=== PATIENT | female | born 1970 | race Caucasian/White ===

== ENCOUNTER 2020-10-18 09:24 | Inpatient (IN) | payer MEDICAID, OTHER ==
[~2020-10-18] VITALS: Ht 157.5 cm; Wt 78.0 kg
[2020-10-18] MEDS ORDERED: AZITHROMYCIN 500 MG in DEXT 5% WATER 250 ML IV ONE (10:00)
[2020-10-18] MEDS ORDERED: CEFTRIAXONE 1 G PREMIX 50 ML IV ONE (10:00)
[2020-10-18] MEDS ORDERED: DEXAMETHASONE 10 MG/ML VIAL IV ONE (10:00)
[2020-10-18 10:30] LABS: HEMATOCRIT. 43.3 % (36.0-48.0); HEMOGLOBIN. 14.2 g/dL (12.0-16.0); MEAN CORPUSCULAR HEMOGLOBIN 28.8 pg (28.0-32.0); MEAN CORPUSCULAR VOLUME 87.5 fL (81.0-99.0); MEAN PLATELET VOLUME 10.5 fl (7.4-10.4); PLATELET 270 x1000/uL (130-400); RED BLOOD CELL COUNT 4.94 mill/uL (4.2-5.4); RED CELL DISTRIBUTION WIDTH 13.4 % (11.6-14.6)
[2020-10-18 10:36] LABS: CHLORIDE 91 mEq/L (98-107)
[2020-10-18 10:40] LABS: PARTIAL THROMBOPLASTIN TIME 28.5 sec (23.4-31.0); PROTHROMBIN TIME 10.4 sec (9.6-11.0)
[2020-10-18 10:47] LABS: PLATELET ESTIMATE NORMAL
[2020-10-18 11:34] LABS: BG BASE EXCESS -5.3 mmol/L (-2.0-2.0); BG CARBOXYHEMOGLOBIN 1.1 % (0.5-1.5); BG DEOXYHEMOGLOBIN 15.8 % (0.0-5.0); BG FRACTION INSPIRED OXYGEN 100; BG METHEMOGLOBIN 0.2 % (0.0-1.5); BG OXYHEMOGLOBIN 82.9 % (94.0-97.0); BG PCO2 29.2 mmHg (35.0-45.0); BG PH 7.408 (7.350-7.450); BG PO2 46.1 mmHg (75.0-100.0); BG SAMPLE SITE RIGHT BRACHIAL; BG TOTAL HEMOGLOBIN 14.1 g/dL (12.0-18.0); BG TOTAL RESPIRATORY RATE 33 b/min; BG VENT MODE MASK - BIPAP
[2020-10-18] MEDS ORDERED: PROPOFOL 10MG/ML 100ML 100 ML IV STA (11:36)
[2020-10-18 12:53] LABS: BG CARBOXYHEMOGLOBIN 0.9 % (0.5-1.5); BG DEOXYHEMOGLOBIN 3.7 % (0.0-5.0); BG HCO3 ACT 19.4 mmol/L (22.0-26.0); BG METHEMOGLOBIN 0.2 % (0.0-1.5); BG OXYGEN SATURATION 96.3 % (92.0-98.5); BG OXYHEMOGLOBIN 95.2 % (94.0-97.0); BG PH 7.282 (7.350-7.450); BG PO2 93.5 mmHg (75.0-100.0); BG SAMPLE SITE RIGHT RADIAL; BG TOTAL HEMOGLOBIN 14.9 g/dL (12.0-18.0); BG VENT MODE VENT - AC
[2020-10-18] MEDS ORDERED: ACETAMINOPHEN 650MG/20.3ML UDC NG ONE (13:00)
[2020-10-18] MEDS ORDERED: INSULIN REGULAR (HUMULIN R) UD 100 UNITS/ML SYR SUBCUT ONE (13:15)
[2020-10-18] MEDS ORDERED: INSULIN REGULAR (HUMULIN R) 300UNITS/3ML VIAL SUBCUT ONE (15:00)
[2020-10-18] MEDS ORDERED: MIDAZOLAM HCL 100 MG in DEXT 5% WATER 80 ML IV ONE (15:15)
[2020-10-18] MEDS ORDERED: SODIUM BICARBONATE 8.4% 1 MEQ/ML 50ML SYR IV NR (16:00)
[2020-10-18] MEDS ORDERED: FENTANYL CITRATE/PF 2,500 MCG in SODIUM CHLORIDE 0.9% 200 ML IV PRN ×2 (17:45→18:00)
[2020-10-18] MEDS ORDERED: MIDAZOLAM HCL 100 MG in DEXT 5% WATER 80 ML IV PRN ×2 (17:45→18:00)
[2020-10-18 17:57] LABS: CLARITY URINE CLEAR (CLEAR); COLOR URINE YELLOW (YELLOW); KETONES URINE 3+ (NEGATIVE); LEUKOCYTE ESTERASE URINE NEGATIVE (NEGATIVE); NITRITE URINE NEGATIVE (NEGATIVE); OCCULT BLOOD URINE NEGATIVE (NEGATIVE); PH URINE 5.5 (4.5-8.0); PROTEIN URINE 2+ (NEGATIVE); SPECIFIC GRAVITY URINE 1.031 (1.005-1.030)
[2020-10-18] MEDS ORDERED: NOREPINEPHRINE 8 MG in DEXT 5% WATER 242 ML IV PRN (19:09)
[2020-10-18] MEDS ORDERED: ACETAMINOPHEN 650MG/20.3ML UDC NG PRN (19:45)
[2020-10-18] MEDS ORDERED: ENOXAPARIN 40MG/0.4ML SYR SUBCUT SCH (19:45)
[2020-10-18] MEDS ORDERED: ONDANSETRON HCL 4MG/2ML INJ IV PRN (19:45)
[2020-10-18] MEDS: ENOXAPARIN 40MG/0.4ML SYR SUBCUT SCH (19:50)
[2020-10-18] MEDS: SODIUM CHLORIDE 0.9% 1,000 ML IV SCH (19:51)
[2020-10-18] MEDS ORDERED: NOREPINEPHRINE 8 MG in SODIUM CHLORIDE 0.9% 242 ML IV PRN (20:04)
[2020-10-18] MEDS: BLOOD SUGAR DIAGNOSTIC STRIP TEST SCH (21:27)
[2020-10-18] MEDS: INSULIN LISPRO 100 UNITS/ML SUBCUT SCH (21:32)
[2020-10-18] MEDS: ERGOCALCIFEROL 50000UNITS CAPSULE PO SCH (21:33)
[2020-10-18] MEDS: INSULIN GLARGINE UD 100 UNITS/ML SYR SUBCUT SCH (22:52)
[2020-10-19] MEDS: BLOOD SUGAR DIAGNOSTIC STRIP TEST SCH ×6 (01:35→20:00)
[2020-10-19] MEDS: INSULIN LISPRO 100 UNITS/ML SUBCUT SCH ×6 (01:38→21:16)
[2020-10-19] MEDS: ASCORBIC ACID 500 MG TABLET PO SCH ×3 (01:52→21:47)
[2020-10-19 06:52] LABS: CHLORIDE 101 mEq/L (98-107)
[2020-10-19 06:59] LABS: PHOSPHORUS 2.4 mg/dL (2.5-4.9)
[2020-10-19 07:11] LABS: BASOPHILS % 0.1 % (0.0-2.0); HEMATOCRIT. 36.5 % (36.0-48.0); HEMOGLOBIN. 12.3 g/dL (12.0-16.0); LYMPHOCYTES % 7.7 % (20.0-50.0); MEAN CORPUSCULAR HEMOGLOBIN 28.9 pg (28.0-32.0); MEAN CORPUSCULAR VOLUME 85.8 fL (81.0-99.0); MEAN PLATELET VOLUME 10.9 fl (7.4-10.4); MONOCYTES % 6.9 % (2.0-8.0); NEUTROPHILS % 85.3 % (40.0-76.0); PLATELET 197 x1000/uL (130-400); RED BLOOD CELL COUNT 4.26 mill/uL (4.2-5.4); RED CELL DISTRIBUTION WIDTH 13.3 % (11.6-14.6)
[2020-10-19 08:23] LABS: BG BASE EXCESS 1.7 mmol/L (-2.0-2.0); BG CARBOXYHEMOGLOBIN 0.3 % (0.5-1.5); BG HCO3 ACT 25.4 mmol/L (22.0-26.0); BG METHEMOGLOBIN 0.2 % (0.0-1.5); BG OXYHEMOGLOBIN 98.5 % (94.0-97.0); BG PCO2 36.6 mmHg (35.0-45.0); BG PH 7.459 (7.350-7.450); BG PO2 209.3 mmHg (75.0-100.0); BG SAMPLE SITE RIGHT RADIAL; BG TOTAL HEMOGLOBIN 12.6 g/dL (12.0-18.0); BG VENT MODE VENT - AC
[2020-10-19] MEDS: PANTOPRAZOLE SODIUM 40 MG/VIAL IV SCH (09:00)
[2020-10-19] MEDS: INSULIN GLARGINE UD 100 UNITS/ML SYR SUBCUT SCH ×2 (10:00→21:47)
[2020-10-19] MEDS: SODIUM CHLORIDE 0.9% 1,000 ML IV SCH (10:39)
[2020-10-19] MEDS: DEXAMETHASONE 10 MG/ML VIAL IV SCH (14:46)
[2020-10-19] MEDS: CEFTRIAXONE 1 G PREMIX 50 ML IV SCH (15:09)
[2020-10-19] MEDS: ENOXAPARIN 40MG/0.4ML SYR SUBCUT SCH (17:15)
[2020-10-19] MEDS: DOXYCYCLINE HYCLATE 100MG CAPSULE PO SCH (21:47)
[2020-10-19] MEDS ORDERED: INSULIN GLARGINE UD 100 UNITS/ML SYR SUBCUT SCH (22:00)
[2020-10-20] MEDS: BLOOD SUGAR DIAGNOSTIC STRIP TEST SCH ×6 (00:06→20:23)
[2020-10-20] MEDS: INSULIN LISPRO 100 UNITS/ML SUBCUT SCH ×6 (00:08→20:23)
[2020-10-20] MEDS: CEFTRIAXONE 1 G PREMIX 50 ML IV SCH (08:59)
[2020-10-20] MEDS: DEXAMETHASONE 10 MG/ML VIAL IV SCH (08:59)
[2020-10-20] MEDS: PANTOPRAZOLE SODIUM 40 MG/VIAL IV SCH (08:59)
[2020-10-20] MEDS: DOXYCYCLINE HYCLATE 100MG CAPSULE PO SCH (09:00)
[2020-10-20] MEDS: ASCORBIC ACID 500 MG TABLET PO SCH (09:00)
[2020-10-20] MEDS: INSULIN GLARGINE UD 100 UNITS/ML SYR SUBCUT SCH (10:00)
[2020-10-20 10:15] LABS: BG BASE EXCESS 0.7 mmol/L (-2.0-2.0); BG CARBOXYHEMOGLOBIN 0.3 % (0.5-1.5); BG FRACTION INSPIRED OXYGEN 80; BG HCO3 ACT 24.3 mmol/L (22.0-26.0); BG OXYHEMOGLOBIN 98.7 % (94.0-97.0); BG PCO2 35.8 mmHg (35.0-45.0); BG PO2 169.6 mmHg (75.0-100.0); BG SAMPLE SITE RIGHT RADIAL; BG TOTAL HEMOGLOBIN 13.2 g/dL (12.0-18.0); BG VENT MODE VENT - AC
[2020-10-20] MEDS: SODIUM CHLORIDE 0.9% 1,000 ML IV SCH (11:45)
[2020-10-20] MEDS: ENOXAPARIN 40MG/0.4ML SYR SUBCUT SCH (17:21)
[2020-10-20] MEDS ORDERED: MIDAZOLAM HCL 100 MG in SODIUM CHLORIDE 0.9% 80 ML IV PRN (19:30)
[2020-10-21] MEDS: ASCORBIC ACID 500 MG TABLET PO SCH ×3 (00:03→22:29)
[2020-10-21] MEDS: INSULIN GLARGINE UD 100 UNITS/ML SYR SUBCUT SCH ×3 (00:03→22:00)
[2020-10-21] MEDS: DOXYCYCLINE HYCLATE 100MG CAPSULE PO SCH ×3 (00:03→22:43)
[2020-10-21] MEDS: BLOOD SUGAR DIAGNOSTIC STRIP TEST SCH ×6 (00:06→22:28)
[2020-10-21] MEDS: INSULIN LISPRO 100 UNITS/ML SUBCUT SCH ×6 (00:07→22:28)
[2020-10-21 06:32] LABS: HEMOGLOBIN. 12.5 g/dL (12.0-16.0); MEAN CORPUSCULAR HEMOGLOBIN 28.2 pg (28.0-32.0); MEAN CORPUSCULAR VOLUME 85.8 fL (81.0-99.0); PLATELET 156 x1000/uL (130-400); RED BLOOD CELL COUNT 4.43 mill/uL (4.2-5.4); RED CELL DISTRIBUTION WIDTH 13.7 % (11.6-14.6)
[2020-10-21 06:44] LABS: CHLORIDE 107 mEq/L (98-107)
[2020-10-21 06:52] LABS: PHOSPHORUS 4.8 mg/dL (2.5-4.9)
[2020-10-21] MEDS: SODIUM CHLORIDE 0.9% 1,000 ML IV SCH ×3 (06:54→22:29)
[2020-10-21 08:38] LABS: BG BASE EXCESS -2.5 mmol/L (-2.0-2.0); BG CARBOXYHEMOGLOBIN 0.7 % (0.5-1.5); BG DEOXYHEMOGLOBIN 2.8 % (0.0-5.0); BG FRACTION INSPIRED OXYGEN 60; BG HCO3 ACT 21.8 mmol/L (22.0-26.0); BG METHEMOGLOBIN 0.1 % (0.0-1.5); BG OXYGEN SATURATION 97.2 % (92.0-98.5); BG OXYHEMOGLOBIN 96.4 % (94.0-97.0); BG PO2 94.5 mmHg (75.0-100.0); BG SAMPLE SITE RIGHT RADIAL; BG TOTAL HEMOGLOBIN 12.6 g/dL (12.0-18.0); BG VENT MODE VENT - AC
[2020-10-21] MEDS: CEFTRIAXONE 1 G PREMIX 50 ML IV SCH (11:00)
[2020-10-21] MEDS: FAMOTIDINE 20MG/2ML VIAL IV SCH ×2 (11:00→22:28)
[2020-10-21 13:36] LABS: PLATELET ESTIMATE NORMAL
[2020-10-21] MEDS: DEXAMETHASONE 10 MG/ML VIAL IV SCH (15:48)
[2020-10-21] MEDS: DEXTROSE 50% WATER 50ML SYRINGE IV PRN (17:46)
[2020-10-21] MEDS: ENOXAPARIN 30MG/0.3ML SYR SUBCUT SCH (22:28)
[2020-10-22] MEDS ORDERED: ALBUMIN HUMAN 25GM/100ML (25%) IV NR (01:00)
[2020-10-22] MEDS: DEXTROSE 50% WATER 50ML SYRINGE IV PRN ×3 (01:12→22:12)
[2020-10-22] MEDS: INSULIN LISPRO 100 UNITS/ML SUBCUT SCH ×6 (01:12→22:15)
[2020-10-22] MEDS: BLOOD SUGAR DIAGNOSTIC STRIP TEST SCH ×6 (01:12→20:00)
[2020-10-22 06:23] LABS: HEMATOCRIT. 36.8 % (36.0-48.0); HEMOGLOBIN. 12.4 g/dL (12.0-16.0); MEAN CORPUSCULAR HEMOGLOBIN 29.2 pg (28.0-32.0); MEAN CORPUSCULAR VOLUME 86.4 fL (81.0-99.0); MEAN PLATELET VOLUME 9.8 fl (7.4-10.4); PLATELET 148 x1000/uL (130-400); RED BLOOD CELL COUNT 4.26 mill/uL (4.2-5.4); RED CELL DISTRIBUTION WIDTH 13.9 % (11.6-14.6)
[2020-10-22] MEDS ORDERED: ALBUMIN HUMAN 25GM/100ML (25%) IV SCH (08:00)
[2020-10-22] MEDS: ASCORBIC ACID 500 MG TABLET PO SCH ×2 (09:54→23:15)
[2020-10-22] MEDS: FAMOTIDINE 20MG/2ML VIAL IV SCH ×2 (09:54→23:15)
[2020-10-22] MEDS: DEXAMETHASONE 10 MG/ML VIAL IV SCH (09:54)
[2020-10-22] MEDS: DOXYCYCLINE HYCLATE 100MG CAPSULE PO SCH ×2 (09:54→23:15)
[2020-10-22] MEDS: INSULIN GLARGINE UD 100 UNITS/ML SYR SUBCUT SCH ×2 (09:54→22:00)
[2020-10-22 10:45] LABS: BG BASE EXCESS -5.7 mmol/L (-2.0-2.0); BG CARBOXYHEMOGLOBIN 0.3 % (0.5-1.5); BG DEOXYHEMOGLOBIN 3.7 % (0.0-5.0); BG FRACTION INSPIRED OXYGEN 50; BG HCO3 ACT 20.1 mmol/L (22.0-26.0); BG OXYGEN SATURATION 96.3 % (92.0-98.5); BG PCO2 40.1 mmHg (35.0-45.0); BG PH 7.317 (7.350-7.450); BG PO2 91.1 mmHg (75.0-100.0); BG SAMPLE SITE RIGHT RADIAL; BG VENT MODE VENT - AC
[2020-10-22] MEDS: SODIUM CHLORIDE 0.9% 1,000 ML IV SCH ×2 (10:53→13:30)
[2020-10-22] MEDS: CEFTRIAXONE 1 G PREMIX 50 ML IV SCH (10:54)
[2020-10-22 11:46] LABS: PLATELET ESTIMATE NORMAL
[2020-10-22] MEDS: ENOXAPARIN 30MG/0.3ML SYR SUBCUT SCH (16:59)
[2020-10-23] MEDS: BLOOD SUGAR DIAGNOSTIC STRIP TEST SCH ×5 (00:40→16:37)
[2020-10-23] MEDS ORDERED: MIDAZOLAM HCL 100 MG in DEXT 5% WATER 80 ML IV SCH (04:00)
[2020-10-23] MEDS: INSULIN LISPRO 100 UNITS/ML SUBCUT SCH ×5 (04:00→16:39)
[2020-10-23] MEDS: DEXTROSE 50% WATER 50ML SYRINGE IV PRN ×2 (04:52→10:00)
[2020-10-23] MEDS: SODIUM CHLORIDE 0.9% 1,000 ML IV SCH (06:18)
[2020-10-23 06:30] LABS: HEMOGLOBIN. 13.5 g/dL (12.0-16.0); MEAN CORPUSCULAR VOLUME 87.8 fL (81.0-99.0); MEAN PLATELET VOLUME 9.4 fl (7.4-10.4); PLATELET 153 x1000/uL (130-400); RED BLOOD CELL COUNT 4.67 mill/uL (4.2-5.4); RED CELL DISTRIBUTION WIDTH 14.2 % (11.6-14.6)
[2020-10-23 07:04] LABS: PHOSPHORUS 4.8 mg/dL (2.5-4.9)
[2020-10-23 07:50] LABS: PLATELET ESTIMATE NORMAL
[2020-10-23] MEDS: ASCORBIC ACID 500 MG TABLET PO SCH (09:39)
[2020-10-23] MEDS: DEXT 5%/0.45% NACL 1000ML 1,000 ML IV SCH ×2 (09:39→18:02)
[2020-10-23] MEDS: CEFTRIAXONE 1 G PREMIX 50 ML IV SCH (09:39)
[2020-10-23] MEDS: DEXAMETHASONE 10 MG/ML VIAL IV SCH (09:39)
[2020-10-23] MEDS: FAMOTIDINE 20MG/2ML VIAL IV SCH (09:39)
[2020-10-23 09:55] LABS: BG BASE EXCESS -7.1 mmol/L (-2.0-2.0); BG CARBOXYHEMOGLOBIN 0.8 % (0.5-1.5); BG DEOXYHEMOGLOBIN 5.3 % (0.0-5.0); BG FRACTION INSPIRED OXYGEN 80; BG HCO3 ACT 19.1 mmol/L (22.0-26.0); BG METHEMOGLOBIN 0.2 % (0.0-1.5); BG OXYGEN SATURATION 94.6 % (92.0-98.5); BG OXYHEMOGLOBIN 93.7 % (94.0-97.0); BG PCO2 41.4 mmHg (35.0-45.0); BG PH 7.283 (7.350-7.450); BG PO2 74.5 mmHg (75.0-100.0); BG SAMPLE SITE LEFT RADIAL; BG TOTAL HEMOGLOBIN 13.3 g/dL (12.0-18.0); BG TOTAL RESPIRATORY RATE 26 b/min; BG VENT MODE VENT - AC
[2020-10-23] MEDS: INSULIN GLARGINE UD 100 UNITS/ML SYR SUBCUT SCH ×2 (10:00→22:00)
[2020-10-23] MEDS: DOXYCYCLINE HYCLATE 100MG CAPSULE PO SCH ×2 (10:00→21:00)
[2020-10-23] MEDS ORDERED: MIDAZOLAM HCL 100 MG in SODIUM CHLORIDE 0.9% 80 ML IV PRN (16:30)
[2020-10-23] MEDS: ENOXAPARIN 30MG/0.3ML SYR SUBCUT SCH (17:22)
[2020-10-23] MEDS: PIPERACILLIN/TAZOBACTAM 3.375 G in DEXT 5% WATER 100 ML IV SCH (17:43)
[2020-10-24] MEDS: BLOOD SUGAR DIAGNOSTIC STRIP TEST SCH ×8 (00:37→23:58)
[2020-10-24] MEDS: INSULIN LISPRO 100 UNITS/ML SUBCUT SCH ×7 (00:41→23:59)
[2020-10-24] MEDS: FAMOTIDINE 20MG/2ML VIAL IV SCH ×2 (00:54→09:31)
[2020-10-24] MEDS: ASCORBIC ACID 500 MG TABLET PO SCH ×2 (00:55→09:00)
[2020-10-24] MEDS: PIPERACILLIN/TAZOBACTAM 3.375 G in DEXT 5% WATER 100 ML IV SCH ×3 (01:00→17:17)
[2020-10-24] MEDS: ACETAMINOPHEN 650MG/20.3ML UDC NG PRN ×2 (02:28→04:58)
[2020-10-24 06:42] LABS: HEMATOCRIT. 38.1 % (36.0-48.0); HEMOGLOBIN. 12.4 g/dL (12.0-16.0); MEAN CORPUSCULAR HEMOGLOBIN 28.7 pg (28.0-32.0); MEAN CORPUSCULAR VOLUME 88.4 fL (81.0-99.0); MEAN PLATELET VOLUME 10.1 fl (7.4-10.4); PLATELET 120 x1000/uL (130-400); RED BLOOD CELL COUNT 4.31 mill/uL (4.2-5.4); RED CELL DISTRIBUTION WIDTH 14.4 % (11.6-14.6)
[2020-10-24 06:49] LABS: PHOSPHORUS 3.5 mg/dL (2.5-4.9)
[2020-10-24] MEDS: DEXT 5%/0.45% NACL 1000ML 1,000 ML IV SCH ×2 (07:30→16:03)
[2020-10-24 08:06] LABS: BG BASE EXCESS -6.1 mmol/L (-2.0-2.0); BG CARBOXYHEMOGLOBIN 0.1 % (0.5-1.5); BG DEOXYHEMOGLOBIN 1.4 % (0.0-5.0); BG HCO3 ACT 19.6 mmol/L (22.0-26.0); BG METHEMOGLOBIN 0.3 % (0.0-1.5); BG OXYGEN SATURATION 98.6 % (92.0-98.5); BG OXYHEMOGLOBIN 98.2 % (94.0-97.0); BG PCO2 39.4 mmHg (35.0-45.0); BG PH 7.315 (7.350-7.450); BG PO2 155.5 mmHg (75.0-100.0); BG SAMPLE SITE RIGHT RADIAL; BG TOTAL HEMOGLOBIN 13.8 g/dL (12.0-18.0); BG VENT MODE VENT - AC
[2020-10-24] MEDS: DOXYCYCLINE HYCLATE 100MG CAPSULE PO SCH ×2 (09:00→11:00)
[2020-10-24] MEDS: DEXAMETHASONE 10 MG/ML VIAL IV SCH (09:31)
[2020-10-24 09:48] LABS: PLATELET ESTIMATE DECREASED
[2020-10-24] MEDS: MIDAZOLAM HCL 100 MG in DEXT 5% WATER 80 ML IV SCH (11:45)
[2020-10-24] MEDS: INSULIN GLARGINE UD 100 UNITS/ML SYR SUBCUT SCH ×2 (11:53→23:06)
[2020-10-24] MEDS: ENOXAPARIN 30MG/0.3ML SYR SUBCUT SCH (17:00)
[2020-10-24] MEDS ORDERED: VECURONIUM BROMIDE 10 MG/VIAL IV ONE (22:00)
[2020-10-24] MEDS ORDERED: ETOMIDATE 2MG/ML 10ML VIAL IV ONE (22:00)
[2020-10-24 23:57] LABS: BG BASE EXCESS -3.7 mmol/L (-2.0-2.0); BG CARBOXYHEMOGLOBIN 0.3 % (0.5-1.5); BG DEOXYHEMOGLOBIN 1.7 % (0.0-5.0); BG FRACTION INSPIRED OXYGEN 80; BG HCO3 ACT 21.6 mmol/L (22.0-26.0); BG METHEMOGLOBIN 0.3 % (0.0-1.5); BG OXYGEN SATURATION 98.3 % (92.0-98.5); BG OXYHEMOGLOBIN 97.7 % (94.0-97.0); BG PCO2 40.1 mmHg (35.0-45.0); BG PO2 128.5 mmHg (75.0-100.0); BG SAMPLE SITE RIGHT RADIAL; BG VENT MODE VENT - AC
[2020-10-25] MEDS: FAMOTIDINE 20MG/2ML VIAL IV SCH ×3 (00:19→21:20)
[2020-10-25] MEDS: ASCORBIC ACID 500 MG TABLET PO SCH ×3 (00:29→21:20)
[2020-10-25] MEDS: PIPERACILLIN/TAZOBACTAM 3.375 G in DEXT 5% WATER 100 ML IV SCH ×3 (03:38→18:36)
[2020-10-25] MEDS: INSULIN LISPRO 100 UNITS/ML SUBCUT SCH ×5 (04:00→20:58)
[2020-10-25] MEDS: BLOOD SUGAR DIAGNOSTIC STRIP TEST SCH ×5 (04:47→20:58)
[2020-10-25] MEDS: DEXT 5%/0.45% NACL 1000ML 1,000 ML IV SCH (07:30)
[2020-10-25] MEDS: DOXYCYCLINE HYCLATE 100MG CAPSULE PO SCH ×2 (09:00→22:24)
[2020-10-25 09:08] LABS: BG BASE EXCESS -3.4 mmol/L (-2.0-2.0); BG CARBOXYHEMOGLOBIN 0.3 % (0.5-1.5); BG DEOXYHEMOGLOBIN 1.3 % (0.0-5.0); BG FRACTION INSPIRED OXYGEN 80; BG HCO3 ACT 21.5 mmol/L (22.0-26.0); BG OXYGEN SATURATION 98.7 % (92.0-98.5); BG OXYHEMOGLOBIN 98.4 % (94.0-97.0); BG PCO2 38.3 mmHg (35.0-45.0); BG PH 7.367 (7.350-7.450); BG PO2 163.8 mmHg (75.0-100.0); BG SAMPLE SITE RIGHT RADIAL; BG TOTAL HEMOGLOBIN 12.5 g/dL (12.0-18.0); BG TOTAL RESPIRATORY RATE 28 b/min; BG VENT MODE VENT - AC
[2020-10-25] MEDS: DEXAMETHASONE 10 MG/ML VIAL IV SCH (09:57)
[2020-10-25] MEDS: INSULIN GLARGINE UD 100 UNITS/ML SYR SUBCUT SCH (11:45)
[2020-10-25 11:49] LABS: HEMATOCRIT. 35.2 % (36.0-48.0); HEMOGLOBIN. 11.4 g/dL (12.0-16.0); MEAN CORPUSCULAR HEMOGLOBIN 28.2 pg (28.0-32.0); MEAN CORPUSCULAR VOLUME 87.1 fL (81.0-99.0); PLATELET 148 x1000/uL (130-400); RED BLOOD CELL COUNT 4.04 mill/uL (4.2-5.4); RED CELL DISTRIBUTION WIDTH 14.6 % (11.6-14.6)
[2020-10-25 15:04] LABS: PLATELET ESTIMATE NORMAL
[2020-10-25] MEDS: ENOXAPARIN 30MG/0.3ML SYR SUBCUT SCH (18:35)
[2020-10-25] MEDS: ERGOCALCIFEROL 50000UNITS CAPSULE PO SCH (18:35)
[2020-10-25] MEDS: DEXTROSE 5% WATER 1,000 ML IV SCH (18:36)
[2020-10-26] MEDS: PIPERACILLIN/TAZOBACTAM 3.375 G in DEXT 5% WATER 100 ML IV SCH ×3 (00:25→17:30)
[2020-10-26] MEDS: INSULIN GLARGINE UD 100 UNITS/ML SYR SUBCUT SCH ×3 (00:25→22:00)
[2020-10-26] MEDS: BLOOD SUGAR DIAGNOSTIC STRIP TEST SCH ×6 (00:26→22:50)
[2020-10-26] MEDS: INSULIN LISPRO 100 UNITS/ML SUBCUT SCH ×6 (04:00→22:50)
[2020-10-26 07:42] LABS: HEMATOCRIT. 37.3 % (36.0-48.0); HEMOGLOBIN. 12.1 g/dL (12.0-16.0); MEAN CORPUSCULAR HEMOGLOBIN 28.6 pg (28.0-32.0); MEAN CORPUSCULAR VOLUME 87.9 fL (81.0-99.0); MEAN PLATELET VOLUME 10.6 fl (7.4-10.4); PLATELET 148 x1000/uL (130-400); RED BLOOD CELL COUNT 4.25 mill/uL (4.2-5.4); RED CELL DISTRIBUTION WIDTH 14.4 % (11.6-14.6)
[2020-10-26 07:50] LABS: PHOSPHORUS 3.3 mg/dL (2.5-4.9)
[2020-10-26] MEDS: ASCORBIC ACID 500 MG TABLET PO SCH ×2 (08:52→21:00)
[2020-10-26] MEDS: FAMOTIDINE 20MG/2ML VIAL IV SCH ×2 (08:52→21:00)
[2020-10-26] MEDS: DEXAMETHASONE 10 MG/ML VIAL IV SCH (08:52)
[2020-10-26] MEDS: DOXYCYCLINE HYCLATE 100MG CAPSULE PO SCH ×2 (09:00→21:00)
[2020-10-26 11:00] LABS: BG BASE EXCESS -2.4 mmol/L (-2.0-2.0); BG CARBOXYHEMOGLOBIN 0.2 % (0.5-1.5); BG DEOXYHEMOGLOBIN 2.3 % (0.0-5.0); BG FRACTION INSPIRED OXYGEN 60; BG HCO3 ACT 22.7 mmol/L (22.0-26.0); BG OXYGEN SATURATION 97.7 % (92.0-98.5); BG OXYHEMOGLOBIN 97.5 % (94.0-97.0); BG PCO2 40.6 mmHg (35.0-45.0); BG PH 7.366 (7.350-7.450); BG PO2 109.2 mmHg (75.0-100.0); BG SAMPLE SITE RIGHT BRACHIAL; BG TOTAL HEMOGLOBIN 11.5 g/dL (12.0-18.0); BG VENT MODE VENT - AC
[2020-10-26] MEDS: DEXTROSE 5% WATER 1,000 ML IV SCH (12:54)
[2020-10-26 15:52] LABS: PLATELET ESTIMATE NORMAL
[2020-10-26] MEDS: ENOXAPARIN 40MG/0.4ML SYR SUBCUT SCH (17:06)
[2020-10-26] MEDS: THEOPHYLLINE ANHYDROUS 80 MG/15 ML 120ML NG SCH (23:04)
[2020-10-27] MEDS: PIPERACILLIN/TAZOBACTAM 3.375 G in DEXT 5% WATER 100 ML IV SCH ×3 (00:41→17:00)
[2020-10-27] MEDS: BLOOD SUGAR DIAGNOSTIC STRIP TEST SCH ×6 (02:45→20:00)
[2020-10-27] MEDS: INSULIN LISPRO 100 UNITS/ML SUBCUT SCH ×6 (02:45→21:40)
[2020-10-27 05:48] LABS: HEMATOCRIT. 42.4 % (36.0-48.0); HEMOGLOBIN. 13.6 g/dL (12.0-16.0); MEAN CORPUSCULAR HEMOGLOBIN 28.2 pg (28.0-32.0); MEAN CORPUSCULAR VOLUME 87.8 fL (81.0-99.0); MEAN PLATELET VOLUME 10.5 fl (7.4-10.4); PLATELET 161 x1000/uL (130-400); RED BLOOD CELL COUNT 4.83 mill/uL (4.2-5.4); RED CELL DISTRIBUTION WIDTH 14.5 % (11.6-14.6)
[2020-10-27 05:53] LABS: CHLORIDE 122 mEq/L (98-107)
[2020-10-27] MEDS: THEOPHYLLINE ANHYDROUS 80 MG/15 ML 120ML NG SCH ×2 (08:00→21:15)
[2020-10-27] MEDS: DEXTROSE 5% WATER 1,000 ML IV SCH (08:30)
[2020-10-27] MEDS: ASCORBIC ACID 500 MG TABLET PO SCH ×2 (09:00→21:58)
[2020-10-27] MEDS: DEXAMETHASONE 10 MG/ML VIAL IV SCH (09:00)
[2020-10-27] MEDS: FAMOTIDINE 20MG/2ML VIAL IV SCH ×2 (09:00→21:58)
[2020-10-27 09:54] LABS: BG BASE EXCESS -2.8 mmol/L (-2.0-2.0); BG CARBOXYHEMOGLOBIN 1.1 % (0.5-1.5); BG DEOXYHEMOGLOBIN 3.6 % (0.0-5.0); BG FRACTION INSPIRED OXYGEN 60; BG HCO3 ACT 22.2 mmol/L (22.0-26.0); BG METHEMOGLOBIN 0.1 % (0.0-1.5); BG OXYGEN SATURATION 96.4 % (92.0-98.5); BG OXYHEMOGLOBIN 95.2 % (94.0-97.0); BG PCO2 39.5 mmHg (35.0-45.0); BG PH 7.368 (7.350-7.450); BG PO2 85.3 mmHg (75.0-100.0); BG SAMPLE SITE RIGHT RADIAL; BG TOTAL HEMOGLOBIN 14.5 g/dL (12.0-18.0); BG TOTAL RESPIRATORY RATE 22 b/min; BG VENT MODE VENT - AC
[2020-10-27] MEDS: INSULIN GLARGINE UD 100 UNITS/ML SYR SUBCUT SCH ×2 (10:00→21:58)
[2020-10-27 11:02] LABS: PLATELET ESTIMATE NORMAL
[2020-10-27] MEDS: MIDAZOLAM HCL 100 MG in DEXT 5% WATER 80 ML IV SCH (13:55)
[2020-10-27] MEDS: ENOXAPARIN 40MG/0.4ML SYR SUBCUT SCH (17:00)
[2020-10-27] MEDS: CLONIDINE 0.1MG TABLET PO PRN (19:09)
[2020-10-27] MEDS: AMLODIPINE 2.5MG TABLET NG SCH (21:58)
[2020-10-28] MEDS: PIPERACILLIN/TAZOBACTAM 3.375 G in DEXT 5% WATER 100 ML IV SCH ×3 (01:22→17:21)
[2020-10-28] MEDS: INSULIN LISPRO 100 UNITS/ML SUBCUT SCH ×4 (01:45→20:46)
[2020-10-28] MEDS: DEXTROSE 5% WATER 1,000 ML IV SCH (05:20)
[2020-10-28 06:32] LABS: HEMATOCRIT. 44.9 % (36.0-48.0); HEMOGLOBIN. 14.6 g/dL (12.0-16.0); MEAN CORPUSCULAR HEMOGLOBIN 28.3 pg (28.0-32.0); MEAN CORPUSCULAR VOLUME 87.1 fL (81.0-99.0); MEAN PLATELET VOLUME 10.6 fl (7.4-10.4); PLATELET 179 x1000/uL (130-400); RED BLOOD CELL COUNT 5.16 mill/uL (4.2-5.4); RED CELL DISTRIBUTION WIDTH 14.3 % (11.6-14.6)
[2020-10-28 06:35] LABS: CHLORIDE 119 mEq/L (98-107)
[2020-10-28 06:40] LABS: PHOSPHORUS 2.6 mg/dL (2.5-4.9)
[2020-10-28] MEDS: BLOOD SUGAR DIAGNOSTIC STRIP TEST SCH ×6 (08:00→20:37)
[2020-10-28] MEDS: DEXAMETHASONE 10 MG/ML VIAL IV SCH (08:19)
[2020-10-28] MEDS: THEOPHYLLINE ANHYDROUS 80 MG/15 ML 120ML NG SCH ×2 (08:19→20:00)
[2020-10-28] MEDS: FAMOTIDINE 20MG/2ML VIAL IV SCH ×2 (08:19→20:46)
[2020-10-28] MEDS: ASCORBIC ACID 500 MG TABLET PO SCH ×2 (08:19→21:00)
[2020-10-28 08:21] LABS: BG BASE EXCESS -2.2 mmol/L (-2.0-2.0); BG CARBOXYHEMOGLOBIN 0.9 % (0.5-1.5); BG DEOXYHEMOGLOBIN 2.5 % (0.0-5.0); BG METHEMOGLOBIN 0.2 % (0.0-1.5); BG OXYGEN SATURATION 97.5 % (92.0-98.5); BG OXYHEMOGLOBIN 96.4 % (94.0-97.0); BG PH 7.367 (7.350-7.450); BG PO2 97.3 mmHg (75.0-100.0); BG SAMPLE SITE RIGHT BRACHIAL; BG TOTAL HEMOGLOBIN 14.4 g/dL (12.0-18.0); BG VENT MODE VENT - AC
[2020-10-28] MEDS: AMLODIPINE 2.5MG TABLET NG SCH ×2 (09:37→22:00)
[2020-10-28] MEDS: CLONIDINE 0.1MG TABLET PO PRN (12:59)
[2020-10-28 13:55] LABS: PLATELET ESTIMATE NORMAL
[2020-10-28] MEDS: ENOXAPARIN 40MG/0.4ML SYR SUBCUT SCH (17:19)
[2020-10-28] MEDS: INSULIN GLARGINE UD 100 UNITS/ML SYR SUBCUT SCH (22:00)
[2020-10-29] VITALS (54 sets, daily range): BP systolic 111–203; BP diastolic 60–109
[2020-10-29] MEDS: INSULIN LISPRO 100 UNITS/ML SUBCUT SCH ×5 (04:00→23:22)
[2020-10-29] MEDS: BLOOD SUGAR DIAGNOSTIC STRIP TEST SCH ×5 (04:00→23:22)
[2020-10-29] MEDS: THEOPHYLLINE ANHYDROUS 80 MG/15 ML 120ML NG SCH ×2 (08:00→21:57)
[2020-10-29 10:19] LABS: BG BASE EXCESS -0.7 mmol/L (-2.0-2.0); BG CARBOXYHEMOGLOBIN 1.2 % (0.5-1.5); BG DEOXYHEMOGLOBIN 3.8 % (0.0-5.0); BG FRACTION INSPIRED OXYGEN 60; BG HCO3 ACT 22.4 mmol/L (22.0-26.0); BG METHEMOGLOBIN 0.3 % (0.0-1.5); BG OXYGEN SATURATION 96.1 % (92.0-98.5); BG OXYHEMOGLOBIN 94.7 % (94.0-97.0); BG PCO2 32.6 mmHg (35.0-45.0); BG PH 7.454 (7.350-7.450); BG SAMPLE SITE RIGHT RADIAL; BG TOTAL HEMOGLOBIN 14.4 g/dL (12.0-18.0); BG VENT MODE VENT - AC
[2020-10-29 10:47] LABS: HEMATOCRIT. 40.6 % (36.0-48.0); HEMOGLOBIN. 13.1 g/dL (12.0-16.0); MEAN CORPUSCULAR VOLUME 86.8 fL (81.0-99.0); MEAN PLATELET VOLUME 10.8 fl (7.4-10.4); PLATELET 166 x1000/uL (130-400); RED BLOOD CELL COUNT 4.68 mill/uL (4.2-5.4)
[2020-10-29 10:49] LABS: CHLORIDE 118 mEq/L (98-107)
[2020-10-29 10:54] LABS: PHOSPHORUS 2.3 mg/dL (2.5-4.9)
[2020-10-29] MEDS: ASCORBIC ACID 500 MG TABLET PO SCH ×2 (11:42→21:56)
[2020-10-29] MEDS: AMLODIPINE 2.5MG TABLET NG SCH ×2 (11:43→21:56)
[2020-10-29] MEDS: DEXAMETHASONE 10 MG/ML VIAL IV SCH (11:43)
[2020-10-29] MEDS: LOSARTAN POTASSIUM 50 MG TABLET NG SCH (11:43)
[2020-10-29] MEDS: FAMOTIDINE 20MG/2ML VIAL IV SCH ×2 (11:43→21:55)
[2020-10-29] MEDS: INSULIN GLARGINE UD 100 UNITS/ML SYR SUBCUT SCH ×2 (11:45→23:17)
[2020-10-29] MEDS ORDERED: IPRATROPIUM/ALBUTEROL 0.5-3(2.5)MG/3ML NEB HHN PRN (12:00)
[2020-10-29] MEDS ORDERED: POTASSIUM PHOS,M-BASIC-D-BASIC 15 MMOL in DEXT 5% WATER 245 ML IV NR (12:30)
[2020-10-29] MEDS: FENTANYL CITRATE/PF 2,500 MCG in SODIUM CHLORIDE 0.9% 200 ML IV PRN ×3 (12:30→22:45)
[2020-10-29 14:11] LABS: PLATELET ESTIMATE NORMAL
[2020-10-29] MEDS ORDERED: POTASSIUM CHLORIDE INJ 40 MEQ in DEXT 5% WATER 250 ML IV NR (17:00)
[2020-10-29] MEDS: MIDAZOLAM HCL 100 MG in DEXT 5% WATER 80 ML IV SCH (18:24)
[2020-10-29] MEDS: ENOXAPARIN 40MG/0.4ML SYR SUBCUT SCH (18:24)
[2020-10-29] MEDS: DEXTROSE 5% WATER 1,000 ML IV SCH (20:30)
[2020-10-30] VITALS (52 sets, daily range): BP systolic 95–180; BP diastolic 57–99
[2020-10-30] MEDS: IPRATROPIUM/ALBUTEROL 0.5-3(2.5)MG/3ML NEB HHN SCH ×5 (03:07→21:28)
[2020-10-30 06:11] LABS: CHLORIDE 114 mEq/L (98-107)
[2020-10-30 06:18] LABS: HEMATOCRIT. 40.1 % (36.0-48.0); HEMOGLOBIN. 13.2 g/dL (12.0-16.0); MEAN CORPUSCULAR HEMOGLOBIN 28.5 pg (28.0-32.0); MEAN CORPUSCULAR VOLUME 86.9 fL (81.0-99.0); MEAN PLATELET VOLUME 11.1 fl (7.4-10.4); PLATELET 191 x1000/uL (130-400); RED BLOOD CELL COUNT 4.62 mill/uL (4.2-5.4); RED CELL DISTRIBUTION WIDTH 14.1 % (11.6-14.6)
[2020-10-30 06:23] LABS: CREATINE KINASE 44 IU/L (26-192)
[2020-10-30] MEDS: BLOOD SUGAR DIAGNOSTIC STRIP TEST SCH ×4 (06:23→23:55)
[2020-10-30] MEDS: INSULIN LISPRO 100 UNITS/ML SUBCUT SCH ×4 (06:25→23:52)
[2020-10-30] MEDS: MIDAZOLAM HCL 100 MG in DEXT 5% WATER 80 ML IV SCH ×2 (06:27→15:22)
[2020-10-30] MEDS: FENTANYL CITRATE/PF 2,500 MCG in SODIUM CHLORIDE 0.9% 200 ML IV PRN ×2 (06:36→15:23)
[2020-10-30 08:30] LABS: BG BASE EXCESS -0.9 mmol/L (-2.0-2.0); BG DEOXYHEMOGLOBIN 4.3 % (0.0-5.0); BG HCO3 ACT 22.7 mmol/L (22.0-26.0); BG METHEMOGLOBIN 0.2 % (0.0-1.5); BG OXYGEN SATURATION 95.6 % (92.0-98.5); BG OXYHEMOGLOBIN 94.5 % (94.0-97.0); BG PCO2 34.9 mmHg (35.0-45.0); BG PH 7.432 (7.350-7.450); BG PO2 75.1 mmHg (75.0-100.0); BG SAMPLE SITE RIGHT RADIAL; BG TOTAL HEMOGLOBIN 13.8 g/dL (12.0-18.0); BG VENT MODE VENT - AC
[2020-10-30] MEDS: FAMOTIDINE 20MG/2ML VIAL IV SCH ×2 (09:08→20:32)
[2020-10-30] MEDS: LOSARTAN POTASSIUM 50 MG TABLET NG SCH (09:08)
[2020-10-30] MEDS: DEXAMETHASONE 10 MG/ML VIAL IV SCH (09:08)
[2020-10-30] MEDS: AMLODIPINE 2.5MG TABLET NG SCH ×2 (09:09→20:32)
[2020-10-30] MEDS: INSULIN GLARGINE UD 100 UNITS/ML SYR SUBCUT SCH ×2 (09:09→23:52)
[2020-10-30] MEDS: ASCORBIC ACID 500 MG TABLET PO SCH ×2 (09:10→20:32)
[2020-10-30 11:45] LABS: PLATELET ESTIMATE NORMAL
[2020-10-30] MEDS: THEOPHYLLINE ANHYDROUS 80 MG/15 ML 120ML NG SCH ×2 (12:43→20:31)
[2020-10-30] MEDS: DEXTROSE 5% WATER 1,000 ML IV SCH (13:35)
[2020-10-30] MEDS: ENOXAPARIN 40MG/0.4ML SYR SUBCUT SCH (18:38)
[2020-10-31] VITALS (46 sets, daily range): BP systolic 107–171; BP diastolic 61–85
[2020-10-31] MEDS: CLONIDINE 0.1MG TABLET PO PRN ×2 (00:45→08:41)
[2020-10-31] MEDS: IPRATROPIUM/ALBUTEROL 0.5-3(2.5)MG/3ML NEB HHN SCH ×6 (01:11→21:00)
[2020-10-31] MEDS: FENTANYL CITRATE/PF 2,500 MCG in SODIUM CHLORIDE 0.9% 200 ML IV PRN (02:03)
[2020-10-31] MEDS: MIDAZOLAM HCL 100 MG in DEXT 5% WATER 80 ML IV SCH (02:13)
[2020-10-31 05:16] LABS: HEMATOCRIT. 39.8 % (36.0-48.0); HEMOGLOBIN. 13.1 g/dL (12.0-16.0); MEAN CORPUSCULAR HEMOGLOBIN 28.5 pg (28.0-32.0); MEAN CORPUSCULAR VOLUME 86.9 fL (81.0-99.0); MEAN PLATELET VOLUME 11.8 fl (7.4-10.4); PLATELET 221 x1000/uL (130-400); RED BLOOD CELL COUNT 4.58 mill/uL (4.2-5.4); RED CELL DISTRIBUTION WIDTH 14.2 % (11.6-14.6)
[2020-10-31 05:24] LABS: CHLORIDE 110 mEq/L (98-107)
[2020-10-31 05:30] LABS: PHOSPHORUS 2.5 mg/dL (2.5-4.9)
[2020-10-31] MEDS: INSULIN LISPRO 100 UNITS/ML SUBCUT SCH ×3 (05:54→18:19)
[2020-10-31] MEDS: BLOOD SUGAR DIAGNOSTIC STRIP TEST SCH ×3 (05:55→18:09)
[2020-10-31 07:20] LABS: PLATELET ESTIMATE NORMAL
[2020-10-31] MEDS: ASCORBIC ACID 500 MG TABLET PO SCH ×2 (08:40→19:50)
[2020-10-31] MEDS: DEXAMETHASONE 10 MG/ML VIAL IV SCH (08:40)
[2020-10-31] MEDS: AMLODIPINE 2.5MG TABLET NG SCH (08:41)
[2020-10-31] MEDS: LOSARTAN POTASSIUM 50 MG TABLET NG SCH (08:41)
[2020-10-31] MEDS: THEOPHYLLINE ANHYDROUS 80 MG/15 ML 120ML NG SCH ×2 (08:42→20:06)
[2020-10-31] MEDS: INSULIN GLARGINE UD 100 UNITS/ML SYR SUBCUT SCH ×2 (08:49→21:29)
[2020-10-31] MEDS: FAMOTIDINE 20MG/2ML VIAL IV SCH ×2 (09:00→19:51)
[2020-10-31] MEDS ORDERED: MAGNESIUM 2 G PREMIX 50 ML IV SCH (10:00)
[2020-10-31 10:34] LABS: BG BASE EXCESS 4.5 mmol/L (-2.0-2.0); BG CARBOXYHEMOGLOBIN 0.4 % (0.5-1.5); BG DEOXYHEMOGLOBIN 5.7 % (0.0-5.0); BG FRACTION INSPIRED OXYGEN 50; BG HCO3 ACT 27.4 mmol/L (22.0-26.0); BG METHEMOGLOBIN 0.2 % (0.0-1.5); BG OXYGEN SATURATION 94.3 % (92.0-98.5); BG OXYHEMOGLOBIN 93.7 % (94.0-97.0); BG PCO2 35.4 mmHg (35.0-45.0); BG PH 7.507 (7.350-7.450); BG PO2 63.4 mmHg (75.0-100.0); BG SAMPLE SITE RIGHT RADIAL; BG TOTAL HEMOGLOBIN 13.5 g/dL (12.0-18.0); BG VENT MODE VENT - CPAP
[2020-10-31] MEDS: MORPHINE SULFATE 2 MG/ML CPJ (NOT FOR IM USE) IV PRN ×3 (12:55→23:55)
[2020-10-31] MEDS: LORAZEPAM 2MG/ML CPJ IV PRN ×2 (12:55→19:51)
[2020-10-31] MEDS: ENOXAPARIN 40MG/0.4ML SYR SUBCUT SCH (18:18)
[2020-10-31] MEDS ORDERED: LACTULOSE 20G/30ML UDC PO PRN (19:00)
[2020-10-31] MEDS: AMLODIPINE 5MG TABLET NG SCH (19:51)
[2020-11-01] VITALS (79 sets, daily range): BP systolic 83–163; BP diastolic 54–108
[2020-11-01] MEDS: INSULIN LISPRO 100 UNITS/ML SUBCUT SCH ×4 (00:03→18:00)
[2020-11-01] MEDS: BLOOD SUGAR DIAGNOSTIC STRIP TEST SCH ×5 (00:07→23:58)
[2020-11-01] MEDS: LORAZEPAM 2MG/ML CPJ IV PRN (00:59)
[2020-11-01] MEDS: IPRATROPIUM/ALBUTEROL 0.5-3(2.5)MG/3ML NEB HHN SCH ×5 (01:12→21:30)
[2020-11-01] MEDS: FENTANYL CITRATE/PF 2,500 MCG in SODIUM CHLORIDE 0.9% 200 ML IV PRN ×2 (05:48→17:59)
[2020-11-01] MEDS: MIDAZOLAM HCL 100 MG in DEXT 5% WATER 80 ML IV SCH (05:49)
[2020-11-01 06:13] LABS: CHLORIDE 106 mEq/L (98-107)
[2020-11-01 06:20] LABS: PHOSPHORUS 2.6 mg/dL (2.5-4.9)
[2020-11-01 06:23] LABS: HEMATOCRIT. 38.8 % (36.0-48.0); HEMOGLOBIN. 12.7 g/dL (12.0-16.0); MEAN CORPUSCULAR HEMOGLOBIN 28.4 pg (28.0-32.0); MEAN CORPUSCULAR VOLUME 86.4 fL (81.0-99.0); MEAN PLATELET VOLUME 11.7 fl (7.4-10.4); PLATELET 232 x1000/uL (130-400); RED BLOOD CELL COUNT 4.49 mill/uL (4.2-5.4); RED CELL DISTRIBUTION WIDTH 13.6 % (11.6-14.6)
[2020-11-01 08:06] LABS: BG BASE EXCESS 4.1 mmol/L (-2.0-2.0); BG CARBOXYHEMOGLOBIN 0.4 % (0.5-1.5); BG DEOXYHEMOGLOBIN 2.2 % (0.0-5.0); BG HCO3 ACT 28.5 mmol/L (22.0-26.0); BG METHEMOGLOBIN 0.3 % (0.0-1.5); BG OXYGEN SATURATION 97.8 % (92.0-98.5); BG OXYHEMOGLOBIN 97.1 % (94.0-97.0); BG PO2 102.1 mmHg (75.0-100.0); BG SAMPLE SITE RIGHT RADIAL; BG TOTAL HEMOGLOBIN 12.5 g/dL (12.0-18.0); BG TOTAL RESPIRATORY RATE 17 b/min
[2020-11-01] MEDS ORDERED: NOREPINEPHRINE 32 MG in DEXT 5% WATER 218 ML IV PRN (09:00)
[2020-11-01] MEDS: MULTIVITAMINS,THER W-MINERALS TABLET PO SCH (09:22)
[2020-11-01] MEDS: ASCORBIC ACID 500 MG TABLET PO SCH ×2 (09:22→21:43)
[2020-11-01] MEDS: DOCUSATE SODIUM SUGAR FREE 100MG/10ML UDC NG SCH (09:22)
[2020-11-01] MEDS: DEXAMETHASONE 10 MG/ML VIAL IV SCH (09:22)
[2020-11-01] MEDS: FAMOTIDINE 20MG/2ML VIAL IV SCH ×2 (09:22→21:43)
[2020-11-01] MEDS: AMLODIPINE 5MG TABLET NG SCH ×2 (09:23→21:45)
[2020-11-01] MEDS: LOSARTAN POTASSIUM 50 MG TABLET NG SCH (09:23)
[2020-11-01] MEDS: INSULIN GLARGINE UD 100 UNITS/ML SYR SUBCUT SCH ×2 (09:45→22:00)
[2020-11-01] MEDS: THEOPHYLLINE ANHYDROUS 80 MG/15 ML 120ML NG SCH ×2 (09:46→20:00)
[2020-11-01 11:49] LABS: PLATELET ESTIMATE NORMAL
[2020-11-01] MEDS: ENOXAPARIN 40MG/0.4ML SYR SUBCUT SCH (17:55)
[2020-11-01] MEDS: METHYLPREDNISOLONE SOD SUCC 40 MG/ML VIAL IV SCH (17:55)
[2020-11-01] MEDS: ERGOCALCIFEROL 50000UNITS CAPSULE PO SCH (17:55)
[2020-11-02] VITALS (60 sets, daily range): BP systolic 102–163; BP diastolic 56–87
[2020-11-02] MEDS: METHYLPREDNISOLONE SOD SUCC 40 MG/ML VIAL IV SCH ×3 (00:45→17:19)
[2020-11-02] MEDS: IPRATROPIUM/ALBUTEROL 0.5-3(2.5)MG/3ML NEB HHN SCH ×4 (03:08→20:58)
[2020-11-02] MEDS: BLOOD SUGAR DIAGNOSTIC STRIP TEST SCH ×3 (05:13→17:22)
[2020-11-02] MEDS: INSULIN LISPRO 100 UNITS/ML SUBCUT SCH ×4 (05:14→17:27)
[2020-11-02] MEDS: MIDAZOLAM HCL 100 MG in DEXT 5% WATER 80 ML IV SCH (05:23)
[2020-11-02 05:55] LABS: HEMATOCRIT. 38.6 % (36.0-48.0); HEMOGLOBIN. 12.9 g/dL (12.0-16.0); MEAN CORPUSCULAR HEMOGLOBIN 28.7 pg (28.0-32.0); MEAN CORPUSCULAR VOLUME 85.9 fL (81.0-99.0); MEAN PLATELET VOLUME 11.2 fl (7.4-10.4); PLATELET 224 x1000/uL (130-400); RED BLOOD CELL COUNT 4.49 mill/uL (4.2-5.4); RED CELL DISTRIBUTION WIDTH 13.7 % (11.6-14.6)
[2020-11-02 05:56] LABS: CHLORIDE 102 mEq/L (98-107)
[2020-11-02 08:41] LABS: BG BASE EXCESS 4.5 mmol/L (-2.0-2.0); BG CARBOXYHEMOGLOBIN 0.9 % (0.5-1.5); BG DEOXYHEMOGLOBIN 5.2 % (0.0-5.0); BG HCO3 ACT 27.2 mmol/L (22.0-26.0); BG METHEMOGLOBIN 0.2 % (0.0-1.5); BG OXYGEN SATURATION 94.7 % (92.0-98.5); BG OXYHEMOGLOBIN 93.7 % (94.0-97.0); BG PCO2 34.6 mmHg (35.0-45.0); BG PH 7.514 (7.350-7.450); BG PO2 68.1 mmHg (75.0-100.0); BG SAMPLE SITE RIGHT RADIAL; BG TOTAL HEMOGLOBIN 13.2 g/dL (12.0-18.0); BG VENT MODE VENT - AC
[2020-11-02] MEDS: ASCORBIC ACID 500 MG TABLET PO SCH ×2 (09:35→23:07)
[2020-11-02] MEDS: LOSARTAN POTASSIUM 50 MG TABLET NG SCH (09:35)
[2020-11-02] MEDS: AMLODIPINE 5MG TABLET NG SCH ×2 (09:35→23:07)
[2020-11-02] MEDS: MULTIVITAMINS,THER W-MINERALS TABLET PO SCH (09:35)
[2020-11-02] MEDS: FAMOTIDINE 20MG/2ML VIAL IV SCH ×2 (09:35→23:06)
[2020-11-02] MEDS: THEOPHYLLINE ANHYDROUS 80 MG/15 ML 120ML NG SCH ×2 (09:53→23:06)
[2020-11-02] MEDS: INSULIN GLARGINE UD 100 UNITS/ML SYR SUBCUT SCH ×2 (10:01→23:07)
[2020-11-02] MEDS: DOCUSATE SODIUM SUGAR FREE 100MG/10ML UDC NG SCH (10:01)
[2020-11-02] MEDS: LORAZEPAM 2MG/ML CPJ IV PRN ×2 (12:11→19:02)
[2020-11-02] MEDS: MORPHINE SULFATE 2 MG/ML CPJ (NOT FOR IM USE) IV PRN ×2 (12:12→19:03)
[2020-11-02] MEDS ORDERED: IOHEXOL-350 100 ML BOTTLE ONE (13:05)
[2020-11-02] MEDS ORDERED: LORAZEPAM 2MG/ML CPJ IV NR (13:15)
[2020-11-02 14:46] LABS: PLATELET ESTIMATE NORMAL
[2020-11-02] MEDS: ENOXAPARIN 80MG/0.8ML SYR SUBCUT SCH ×2 (15:10→23:06)
[2020-11-02 16:59] LABS: BG BASE EXCESS 3.8 mmol/L (-2.0-2.0); BG CARBOXYHEMOGLOBIN 0.6 % (0.5-1.5); BG DEOXYHEMOGLOBIN 4.5 % (0.0-5.0); BG FRACTION INSPIRED OXYGEN 50; BG HCO3 ACT 27.5 mmol/L (22.0-26.0); BG METHEMOGLOBIN 0.3 % (0.0-1.5); BG OXYGEN SATURATION 95.5 % (92.0-98.5); BG OXYHEMOGLOBIN 94.6 % (94.0-97.0); BG PCO2 38.3 mmHg (35.0-45.0); BG PH 7.474 (7.350-7.450); BG PO2 73.7 mmHg (75.0-100.0); BG SAMPLE SITE LEFT RADIAL; BG TOTAL HEMOGLOBIN 12.9 g/dL (12.0-18.0); BG TOTAL RESPIRATORY RATE 25 b/min; BG VENT MODE VENT - CPAP
[2020-11-03] VITALS (89 sets, daily range): BP systolic 102–164; BP diastolic 25–116
[2020-11-03] MEDS: BLOOD SUGAR DIAGNOSTIC STRIP TEST SCH ×5 (00:25→23:40)
[2020-11-03] MEDS: METHYLPREDNISOLONE SOD SUCC 40 MG/ML VIAL IV SCH ×4 (00:48→23:41)
[2020-11-03] MEDS: INSULIN LISPRO 100 UNITS/ML SUBCUT SCH ×5 (00:48→23:41)
[2020-11-03] MEDS: LORAZEPAM 2MG/ML CPJ IV PRN ×2 (01:44→10:10)
[2020-11-03] MEDS: FENTANYL CITRATE/PF 2,500 MCG in SODIUM CHLORIDE 0.9% 200 ML IV PRN (02:14)
[2020-11-03] MEDS: IPRATROPIUM/ALBUTEROL 0.5-3(2.5)MG/3ML NEB HHN SCH ×3 (03:00→20:00)
[2020-11-03 05:22] LABS: HEMATOCRIT. 38.5 % (36.0-48.0); HEMOGLOBIN. 12.7 g/dL (12.0-16.0); MEAN CORPUSCULAR HEMOGLOBIN 28.3 pg (28.0-32.0); MEAN CORPUSCULAR VOLUME 85.7 fL (81.0-99.0); MEAN PLATELET VOLUME 11.3 fl (7.4-10.4); PLATELET 209 x1000/uL (130-400); RED BLOOD CELL COUNT 4.49 mill/uL (4.2-5.4); RED CELL DISTRIBUTION WIDTH 13.4 % (11.6-14.6)
[2020-11-03 05:36] LABS: CHLORIDE 104 mEq/L (98-107)
[2020-11-03 05:45] LABS: PHOSPHORUS 3.3 mg/dL (2.5-4.9)
[2020-11-03 08:56] LABS: PLATELET ESTIMATE NORMAL
[2020-11-03] MEDS: MIDAZOLAM HCL 100 MG in DEXT 5% WATER 80 ML IV SCH (09:05)
[2020-11-03] MEDS: MORPHINE SULFATE 2 MG/ML CPJ (NOT FOR IM USE) IV PRN (10:11)
[2020-11-03 10:49] LABS: BG BASE EXCESS 6.4 mmol/L (-2.0-2.0); BG CARBOXYHEMOGLOBIN 0.3 % (0.5-1.5); BG DEOXYHEMOGLOBIN 4.2 % (0.0-5.0); BG FRACTION INSPIRED OXYGEN 50; BG METHEMOGLOBIN 0.3 % (0.0-1.5); BG OXYGEN SATURATION 95.8 % (92.0-98.5); BG OXYHEMOGLOBIN 95.2 % (94.0-97.0); BG PCO2 44.3 mmHg (35.0-45.0); BG PH 7.463 (7.350-7.450); BG PO2 77.1 mmHg (75.0-100.0); BG SAMPLE SITE RIGHT RADIAL; BG TOTAL HEMOGLOBIN 14.1 g/dL (12.0-18.0); BG VENT MODE VENT - AC
[2020-11-03] MEDS: ENOXAPARIN 80MG/0.8ML SYR SUBCUT SCH ×2 (12:23→20:40)
[2020-11-03] MEDS: DOCUSATE SODIUM SUGAR FREE 100MG/10ML UDC NG SCH (12:23)
[2020-11-03] MEDS: ASCORBIC ACID 500 MG TABLET PO SCH ×2 (12:24→20:40)
[2020-11-03] MEDS: FAMOTIDINE 20MG/2ML VIAL IV SCH ×2 (12:24→20:40)
[2020-11-03] MEDS: LOSARTAN POTASSIUM 50 MG TABLET NG SCH (12:24)
[2020-11-03] MEDS: AMLODIPINE 5MG TABLET NG SCH ×2 (12:24→20:40)
[2020-11-03] MEDS: MULTIVITAMINS,THER W-MINERALS TABLET PO SCH (12:24)
[2020-11-03] MEDS: INSULIN GLARGINE UD 100 UNITS/ML SYR SUBCUT SCH ×2 (12:25→22:11)
[2020-11-03] MEDS: THEOPHYLLINE ANHYDROUS 80 MG/15 ML 120ML NG SCH ×2 (12:25→20:40)
[2020-11-03] MEDS: DEXTROSE 50% WATER 50ML SYRINGE IV PRN (12:47)
[2020-11-03 12:55] LABS: BG BASE EXCESS 6.6 mmol/L (-2.0-2.0); BG CARBOXYHEMOGLOBIN 0.4 % (0.5-1.5); BG DEOXYHEMOGLOBIN 5.8 % (0.0-5.0); BG FRACTION INSPIRED OXYGEN 50; BG HCO3 ACT 30.7 mmol/L (22.0-26.0); BG METHEMOGLOBIN 0.2 % (0.0-1.5); BG OXYGEN SATURATION 94.2 % (92.0-98.5); BG OXYHEMOGLOBIN 93.6 % (94.0-97.0); BG PCO2 42.2 mmHg (35.0-45.0); BG PO2 66.6 mmHg (75.0-100.0); BG SAMPLE SITE RIGHT RADIAL; BG TOTAL HEMOGLOBIN 13.2 g/dL (12.0-18.0); BG VENT MODE VENT - CPAP
[2020-11-03 17:01] LABS: BG BASE EXCESS 4.4 mmol/L (-2.0-2.0); BG CARBOXYHEMOGLOBIN 0.8 % (0.5-1.5); BG DEOXYHEMOGLOBIN 11.6 % (0.0-5.0); BG FRACTION INSPIRED OXYGEN 50; BG HCO3 ACT 27.2 mmol/L (22.0-26.0); BG METHEMOGLOBIN 0.1 % (0.0-1.5); BG OXYGEN SATURATION 88.3 % (92.0-98.5); BG OXYHEMOGLOBIN 87.5 % (94.0-97.0); BG PCO2 34.7 mmHg (35.0-45.0); BG PH 7.512 (7.350-7.450); BG PO2 49.1 mmHg (75.0-100.0); BG SAMPLE SITE RIGHT RADIAL; BG TOTAL HEMOGLOBIN 13.7 g/dL (12.0-18.0); BG VENT MODE COOL AEROSOL
[2020-11-04] VITALS (91 sets, daily range): BP systolic 97–161; BP diastolic 19–111
[2020-11-04] MEDS ORDERED: MIDAZOLAM 100MG/100ML PREMIX IV PRN (00:45)
[2020-11-04] MEDS: IPRATROPIUM/ALBUTEROL 0.5-3(2.5)MG/3ML NEB HHN SCH ×4 (03:06→20:50)
[2020-11-04] MEDS: INSULIN LISPRO 100 UNITS/ML SUBCUT SCH ×4 (05:38→23:42)
[2020-11-04] MEDS: BLOOD SUGAR DIAGNOSTIC STRIP TEST SCH ×4 (05:38→23:33)
[2020-11-04 05:44] LABS: CHLORIDE 106 mEq/L (98-107)
[2020-11-04 05:54] LABS: PHOSPHORUS 3.2 mg/dL (2.5-4.9)
[2020-11-04 09:12] LABS: BG BASE EXCESS 6.1 mmol/L (-2.0-2.0); BG CARBOXYHEMOGLOBIN 0.9 % (0.5-1.5); BG FRACTION INSPIRED OXYGEN 80; BG METHEMOGLOBIN 0.1 % (0.0-1.5); BG OXYGEN SATURATION 89.9 % (92.0-98.5); BG PCO2 40.7 mmHg (35.0-45.0); BG PH 7.485 (7.350-7.450); BG SAMPLE SITE RIGHT RADIAL; BG TOTAL HEMOGLOBIN 13.3 g/dL (12.0-18.0); BG VENT MODE COOL AEROSOL
[2020-11-04] MEDS: FAMOTIDINE 20MG/2ML VIAL IV SCH ×2 (09:47→20:27)
[2020-11-04] MEDS: THEOPHYLLINE ANHYDROUS 80 MG/15 ML 120ML NG SCH ×2 (09:47→20:27)
[2020-11-04] MEDS: METHYLPREDNISOLONE SOD SUCC 40 MG/ML VIAL IV SCH ×3 (09:47→23:42)
[2020-11-04] MEDS: MULTIVITAMINS,THER W-MINERALS TABLET PO SCH (09:48)
[2020-11-04] MEDS: AMLODIPINE 5MG TABLET NG SCH ×2 (09:48→20:27)
[2020-11-04] MEDS: DOCUSATE SODIUM SUGAR FREE 100MG/10ML UDC NG SCH (09:48)
[2020-11-04] MEDS: LOSARTAN POTASSIUM 50 MG TABLET NG SCH (09:48)
[2020-11-04] MEDS: ASCORBIC ACID 500 MG TABLET PO SCH ×2 (09:49→20:27)
[2020-11-04] MEDS: ENOXAPARIN 80MG/0.8ML SYR SUBCUT SCH ×2 (09:50→20:27)
[2020-11-04] MEDS: INSULIN GLARGINE UD 100 UNITS/ML SYR SUBCUT SCH ×2 (09:51→21:57)
[2020-11-04 15:37] LABS: HEMATOCRIT. 38.5 % (36.0-48.0); HEMOGLOBIN. 12.6 g/dL (12.0-16.0); MEAN CORPUSCULAR HEMOGLOBIN 28.3 pg (28.0-32.0); MEAN CORPUSCULAR VOLUME 86.5 fL (81.0-99.0); MEAN PLATELET VOLUME 11.1 fl (7.4-10.4); PLATELET 201 x1000/uL (130-400); RED BLOOD CELL COUNT 4.45 mill/uL (4.2-5.4); RED CELL DISTRIBUTION WIDTH 13.9 % (11.6-14.6)
[2020-11-04 16:35] LABS: PLATELET ESTIMATE NORMAL
[2020-11-04] MEDS: LORAZEPAM 2MG/ML CPJ IV PRN (20:41)
[2020-11-05] VITALS (53 sets, daily range): BP systolic 88–153; BP diastolic 41–104
[2020-11-05] MEDS: BLOOD SUGAR DIAGNOSTIC STRIP TEST SCH ×4 (05:53→23:03)
[2020-11-05] MEDS: INSULIN LISPRO 100 UNITS/ML SUBCUT SCH ×4 (05:53→23:03)
[2020-11-05 05:57] LABS: HEMATOCRIT. 39.4 % (36.0-48.0); HEMOGLOBIN. 12.9 g/dL (12.0-16.0); MEAN CORPUSCULAR HEMOGLOBIN 28.1 pg (28.0-32.0); MEAN CORPUSCULAR VOLUME 85.6 fL (81.0-99.0); MEAN PLATELET VOLUME 11.8 fl (7.4-10.4); PLATELET 217 x1000/uL (130-400); RED BLOOD CELL COUNT 4.61 mill/uL (4.2-5.4); RED CELL DISTRIBUTION WIDTH 13.9 % (11.6-14.6)
[2020-11-05 06:04] LABS: CHLORIDE 104 mEq/L (98-107)
[2020-11-05 06:12] LABS: PHOSPHORUS 4.2 mg/dL (2.5-4.9)
[2020-11-05 07:41] LABS: PLATELET ESTIMATE NORMAL
[2020-11-05] MEDS: ENOXAPARIN 80MG/0.8ML SYR SUBCUT SCH ×2 (08:53→20:38)
[2020-11-05] MEDS: MULTIVITAMINS,THER W-MINERALS TABLET PO SCH (08:54)
[2020-11-05] MEDS: DOCUSATE SODIUM SUGAR FREE 100MG/10ML UDC NG SCH (08:54)
[2020-11-05] MEDS: FAMOTIDINE 20MG/2ML VIAL IV SCH ×2 (08:54→20:37)
[2020-11-05] MEDS: METHYLPREDNISOLONE SOD SUCC 40 MG/ML VIAL IV SCH ×3 (08:54→23:03)
[2020-11-05] MEDS: ASCORBIC ACID 500 MG TABLET PO SCH ×2 (08:55→20:37)
[2020-11-05] MEDS: AMLODIPINE 5MG TABLET NG SCH ×2 (08:55→20:37)
[2020-11-05] MEDS: LOSARTAN POTASSIUM 50 MG TABLET NG SCH (08:55)
[2020-11-05] MEDS: THEOPHYLLINE ANHYDROUS 80 MG/15 ML 120ML NG SCH ×2 (08:57→20:00)
[2020-11-05 09:04] LABS: BG BASE EXCESS 3.5 mmol/L (-2.0-2.0); BG CARBOXYHEMOGLOBIN 0.8 % (0.5-1.5); BG DEOXYHEMOGLOBIN 8.5 % (0.0-5.0); BG HCO3 ACT 26.2 mmol/L (22.0-26.0); BG METHEMOGLOBIN 0.1 % (0.0-1.5); BG OXYGEN SATURATION 91.4 % (92.0-98.5); BG OXYHEMOGLOBIN 90.6 % (94.0-97.0); BG PCO2 33.5 mmHg (35.0-45.0); BG PH 7.511 (7.350-7.450); BG PO2 56.6 mmHg (75.0-100.0); BG SAMPLE SITE RIGHT RADIAL; BG VENT MODE COOL AEROSOL
[2020-11-05] MEDS: INSULIN GLARGINE UD 100 UNITS/ML SYR SUBCUT SCH ×2 (13:06→23:02)
[2020-11-05] MEDS: DIPHENHYDRAMINE 50MG/ML VIAL IV PRN (23:11)
[2020-11-06] VITALS (48 sets, daily range): BP systolic 93–165; BP diastolic 20–103
[2020-11-06] MEDS: LORAZEPAM 2MG/ML CPJ IV PRN ×2 (00:10→21:45)
[2020-11-06 05:18] LABS: HEMATOCRIT. 39.8 % (36.0-48.0); HEMOGLOBIN. 13.1 g/dL (12.0-16.0); MEAN CORPUSCULAR HEMOGLOBIN 28.5 pg (28.0-32.0); MEAN CORPUSCULAR VOLUME 86.8 fL (81.0-99.0); PLATELET 230 x1000/uL (130-400); RED BLOOD CELL COUNT 4.59 mill/uL (4.2-5.4); RED CELL DISTRIBUTION WIDTH 14.1 % (11.6-14.6)
[2020-11-06 05:29] LABS: CHLORIDE 108 mEq/L (98-107)
[2020-11-06] MEDS: BLOOD SUGAR DIAGNOSTIC STRIP TEST SCH ×4 (05:29→23:26)
[2020-11-06] MEDS: INSULIN LISPRO 100 UNITS/ML SUBCUT SCH ×4 (05:29→23:25)
[2020-11-06 05:31] LABS: PHOSPHORUS 5.4 mg/dL (2.5-4.9)
[2020-11-06] MEDS: METHYLPREDNISOLONE SOD SUCC 40 MG/ML VIAL IV SCH ×3 (08:25→23:23)
[2020-11-06] MEDS: DOCUSATE SODIUM SUGAR FREE 100MG/10ML UDC NG SCH (08:26)
[2020-11-06] MEDS: FAMOTIDINE 20MG/2ML VIAL IV SCH ×2 (08:26→20:46)
[2020-11-06] MEDS: ENOXAPARIN 80MG/0.8ML SYR SUBCUT SCH ×2 (08:26→20:46)
[2020-11-06] MEDS: ASCORBIC ACID 500 MG TABLET PO SCH ×2 (08:27→20:46)
[2020-11-06] MEDS: MULTIVITAMINS,THER W-MINERALS TABLET PO SCH (08:27)
[2020-11-06] MEDS: AMLODIPINE 5MG TABLET NG SCH ×2 (08:27→20:46)
[2020-11-06] MEDS: LOSARTAN POTASSIUM 50 MG TABLET NG SCH (08:28)
[2020-11-06] MEDS: THEOPHYLLINE ANHYDROUS 80 MG/15 ML 120ML NG SCH ×2 (08:35→23:29)
[2020-11-06 10:22] LABS: PLATELET ESTIMATE NORMAL
[2020-11-06] MEDS: INSULIN GLARGINE UD 100 UNITS/ML SYR SUBCUT SCH ×2 (11:03→23:25)
[2020-11-06 12:39] LABS: BG BASE EXCESS 5.4 mmol/L (-2.0-2.0); BG CARBOXYHEMOGLOBIN 0.7 % (0.5-1.5); BG DEOXYHEMOGLOBIN 6.4 % (0.0-5.0); BG FRACTION INSPIRED OXYGEN 60; BG HCO3 ACT 29.1 mmol/L (22.0-26.0); BG METHEMOGLOBIN 0.2 % (0.0-1.5); BG OXYGEN SATURATION 93.5 % (92.0-98.5); BG OXYHEMOGLOBIN 92.7 % (94.0-97.0); BG PCO2 39.3 mmHg (35.0-45.0); BG PH 7.487 (7.350-7.450); BG PO2 63.6 mmHg (75.0-100.0); BG SAMPLE SITE RIGHT RADIAL; BG TOTAL HEMOGLOBIN 13.5 g/dL (12.0-18.0); BG VENT MODE COOL AEROSOL
[2020-11-06 17:06] LABS: CLARITY URINE CLOUDY (CLEAR); COLOR URINE RED (YELLOW); KETONES URINE NEGATIVE (NEGATIVE); LEUKOCYTE ESTERASE URINE 2+ (NEGATIVE); NITRITE URINE NEGATIVE (NEGATIVE); OCCULT BLOOD URINE 3+ (NEGATIVE); PROTEIN URINE 2+ (NEGATIVE); SPECIFIC GRAVITY URINE 1.014 (1.005-1.030)
[2020-11-07] VITALS (15 sets, daily range): BP systolic 86–133; BP diastolic 46–84
[2020-11-07] MEDS: BLOOD SUGAR DIAGNOSTIC STRIP TEST SCH ×3 (05:19→17:12)
[2020-11-07] MEDS: INSULIN LISPRO 100 UNITS/ML SUBCUT SCH ×3 (05:20→17:12)
[2020-11-07] MEDS: METHYLPREDNISOLONE SOD SUCC 40 MG/ML VIAL IV SCH ×2 (08:10→15:13)
[2020-11-07] MEDS: THEOPHYLLINE ANHYDROUS 80 MG/15 ML 120ML NG SCH ×2 (08:22→21:17)
[2020-11-07] MEDS: FAMOTIDINE 20MG/2ML VIAL IV SCH ×2 (10:05→21:17)
[2020-11-07] MEDS: ASCORBIC ACID 500 MG TABLET PO SCH ×2 (10:05→21:16)
[2020-11-07] MEDS: AMLODIPINE 5MG TABLET NG SCH ×2 (10:05→21:17)
[2020-11-07] MEDS: LOSARTAN POTASSIUM 50 MG TABLET NG SCH (10:05)
[2020-11-07] MEDS: ENOXAPARIN 80MG/0.8ML SYR SUBCUT SCH ×2 (10:06→21:16)
[2020-11-07] MEDS: INSULIN GLARGINE UD 100 UNITS/ML SYR SUBCUT SCH (10:08)
[2020-11-07] MEDS: MULTIVITAMINS,THER W-MINERALS TABLET PO SCH (10:26)
[2020-11-07 11:45] LABS: HEMATOCRIT. 40.2 % (36.0-48.0); MEAN CORPUSCULAR HEMOGLOBIN 28.4 pg (28.0-32.0); MEAN CORPUSCULAR VOLUME 87.6 fL (81.0-99.0); MEAN PLATELET VOLUME 11.3 fl (7.4-10.4); PLATELET 234 x1000/uL (130-400); RED BLOOD CELL COUNT 4.59 mill/uL (4.2-5.4); RED CELL DISTRIBUTION WIDTH 14.1 % (11.6-14.6)
[2020-11-07 11:50] LABS: CHLORIDE 111 mEq/L (98-107)
[2020-11-07 11:58] LABS: PHOSPHORUS 5.2 mg/dL (2.5-4.9)
[2020-11-07] MEDS: DOCUSATE SODIUM SUGAR FREE 100MG/10ML UDC NG SCH (13:27)
[2020-11-07 14:14] LABS: PLATELET ESTIMATE NORMAL
[2020-11-07] MEDS: LORAZEPAM 2MG/ML CPJ IV PRN ×2 (15:13→22:49)
[2020-11-07] MEDS ORDERED: FLUCONAZOLE 100MG TABLET NG SCH (17:00)
[2020-11-08] VITALS (13 sets, daily range): BP systolic 98–123; BP diastolic 39–79
[2020-11-08] MEDS: INSULIN LISPRO 100 UNITS/ML SUBCUT SCH ×4 (00:27→17:57)
[2020-11-08] MEDS: INSULIN GLARGINE UD 100 UNITS/ML SYR SUBCUT SCH ×2 (00:27→10:06)
[2020-11-08] MEDS: BLOOD SUGAR DIAGNOSTIC STRIP TEST SCH ×5 (00:28→23:58)
[2020-11-08] MEDS: METHYLPREDNISOLONE SOD SUCC 40 MG/ML VIAL IV SCH ×3 (00:38→17:34)
[2020-11-08] MEDS: LORAZEPAM 2MG/ML CPJ IV PRN ×2 (07:20→22:13)
[2020-11-08] MEDS: DOCUSATE SODIUM SUGAR FREE 100MG/10ML UDC NG SCH (08:31)
[2020-11-08] MEDS: AMLODIPINE 5MG TABLET NG SCH ×2 (08:34→20:21)
[2020-11-08] MEDS: LOSARTAN POTASSIUM 50 MG TABLET NG SCH (08:35)
[2020-11-08] MEDS: FAMOTIDINE 20MG/2ML VIAL IV SCH ×2 (08:35→20:21)
[2020-11-08] MEDS: MULTIVITAMINS,THER W-MINERALS TABLET PO SCH (08:35)
[2020-11-08] MEDS: THEOPHYLLINE ANHYDROUS 80 MG/15 ML 120ML NG SCH (08:36)
[2020-11-08] MEDS: ENOXAPARIN 80MG/0.8ML SYR SUBCUT SCH ×2 (08:37→20:21)
[2020-11-08] MEDS ORDERED: FLUCONAZOLE 100MG TABLET PO SCH (09:00)
[2020-11-08] MEDS: ASCORBIC ACID 500 MG TABLET PO SCH ×2 (10:05→20:20)
[2020-11-08] MEDS: FLUCONAZOLE 200MG/5ML ORAL SYR PO SCH (10:05)
[2020-11-09] VITALS (15 sets, daily range): BP systolic 109–143; BP diastolic 48–106
[2020-11-09] MEDS: INSULIN GLARGINE UD 100 UNITS/ML SYR SUBCUT SCH ×3 (00:08→23:55)
[2020-11-09] MEDS: INSULIN LISPRO 100 UNITS/ML SUBCUT SCH ×5 (00:08→23:55)
[2020-11-09] MEDS: METHYLPREDNISOLONE SOD SUCC 40 MG/ML VIAL IV SCH ×3 (00:10→15:35)
[2020-11-09] MEDS: THEOPHYLLINE ANHYDROUS 80 MG/15 ML 120ML NG SCH ×3 (00:11→22:12)
[2020-11-09 06:14] LABS: HEMATOCRIT. 38.5 % (36.0-48.0); HEMOGLOBIN. 12.5 g/dL (12.0-16.0); MEAN CORPUSCULAR HEMOGLOBIN 28.3 pg (28.0-32.0); MEAN CORPUSCULAR VOLUME 87.5 fL (81.0-99.0); MEAN PLATELET VOLUME 11.9 fl (7.4-10.4); PLATELET 244 x1000/uL (130-400); RED CELL DISTRIBUTION WIDTH 13.7 % (11.6-14.6)
[2020-11-09] MEDS: BLOOD SUGAR DIAGNOSTIC STRIP TEST SCH ×4 (06:34→23:55)
[2020-11-09 06:35] LABS: CHLORIDE 114 mEq/L (98-107)
[2020-11-09 06:40] LABS: PHOSPHORUS 3.7 mg/dL (2.5-4.9)
[2020-11-09] MEDS: LOSARTAN POTASSIUM 50 MG TABLET NG SCH (09:36)
[2020-11-09] MEDS: FAMOTIDINE 20MG/2ML VIAL IV SCH ×2 (09:36→22:11)
[2020-11-09] MEDS: ERGOCALCIFEROL 50000UNITS CAPSULE PO SCH (09:36)
[2020-11-09] MEDS: FLUCONAZOLE 200MG/5ML ORAL SYR PO SCH (09:37)
[2020-11-09] MEDS: MULTIVITAMINS,THER W-MINERALS TABLET PO SCH (09:37)
[2020-11-09] MEDS: AMLODIPINE 5MG TABLET NG SCH ×2 (09:37→22:11)
[2020-11-09] MEDS: ASCORBIC ACID 500 MG TABLET PO SCH ×2 (09:37→22:15)
[2020-11-09] MEDS: ENOXAPARIN 80MG/0.8ML SYR SUBCUT SCH ×2 (09:38→22:15)
[2020-11-09 15:33] LABS: ATYPICAL LYMPHOCYTES 1; PLATELET ESTIMATE NORMAL
[2020-11-09] MEDS: SODIUM CHLORIDE 0.45% 1,000 ML IV SCH (15:34)
[2020-11-10] VITALS (7 sets, daily range): BP systolic 85–144; BP diastolic 52–78
[2020-11-10] MEDS: DIPHENHYDRAMINE 50MG/ML VIAL IV PRN (00:54)
[2020-11-10] MEDS: LORAZEPAM 2MG/ML CPJ IV PRN (02:25)
[2020-11-10] MEDS: DEXTROSE 50% WATER 50ML SYRINGE IV PRN (05:36)
[2020-11-10] MEDS: BLOOD SUGAR DIAGNOSTIC STRIP TEST SCH ×3 (05:36→17:36)
[2020-11-10] MEDS: INSULIN LISPRO 100 UNITS/ML SUBCUT SCH ×3 (05:37→17:36)
[2020-11-10] MEDS: SODIUM CHLORIDE 0.45% 1,000 ML IV SCH ×2 (05:38→16:54)
[2020-11-10 06:03] LABS: BASOPHILS % 0.1 % (0.0-2.0); EOSINOPHILS % 0.9 % (0.0-5.0); HEMATOCRIT. 36.6 % (36.0-48.0); HEMOGLOBIN. 11.7 g/dL (12.0-16.0); LYMPHOCYTES % 9.1 % (20.0-50.0); MEAN CORPUSCULAR HEMOGLOBIN 28.2 pg (28.0-32.0); MEAN PLATELET VOLUME 11.4 fl (7.4-10.4); MONOCYTES % 3.9 % (2.0-8.0); PLATELET 223 x1000/uL (130-400); RED BLOOD CELL COUNT 4.16 mill/uL (4.2-5.4); RED CELL DISTRIBUTION WIDTH 13.6 % (11.6-14.6)
[2020-11-10] MEDS: DOCUSATE SODIUM SUGAR FREE 100MG/10ML UDC NG SCH (09:00)
[2020-11-10] MEDS: ASCORBIC ACID 500 MG TABLET PO SCH ×2 (09:08→20:46)
[2020-11-10] MEDS: LOSARTAN POTASSIUM 50 MG TABLET NG SCH (09:09)
[2020-11-10] MEDS: MULTIVITAMINS,THER W-MINERALS TABLET PO SCH (09:09)
[2020-11-10] MEDS: AMLODIPINE 5MG TABLET NG SCH ×2 (09:09→20:53)
[2020-11-10] MEDS: METHYLPREDNISOLONE SOD SUCC 40 MG/ML VIAL IV SCH (09:10)
[2020-11-10] MEDS: ENOXAPARIN 80MG/0.8ML SYR SUBCUT SCH ×2 (09:10→20:53)
[2020-11-10] MEDS: FAMOTIDINE 20MG/2ML VIAL IV SCH ×2 (09:10→20:45)
[2020-11-10] MEDS: THEOPHYLLINE ANHYDROUS 80 MG/15 ML 120ML NG SCH ×2 (09:11→20:00)
[2020-11-10] MEDS: FLUCONAZOLE 200MG/5ML ORAL SYR PO SCH (09:15)
[2020-11-10 10:17] LABS: CHLORIDE 118 mEq/L (98-107)
[2020-11-10 10:23] LABS: PHOSPHORUS 2.5 mg/dL (2.5-4.9)
[2020-11-10] MEDS: INSULIN GLARGINE UD 100 UNITS/ML SYR SUBCUT SCH ×2 (11:47→22:00)
[2020-11-10] MEDS: OXYBUTYNIN CHLORIDE 5MG TABLET PO SCH (20:45)
[2020-11-11] MEDS: BLOOD SUGAR DIAGNOSTIC STRIP TEST SCH ×4 (00:14→17:59)
[2020-11-11] MEDS: DIPHENHYDRAMINE 50MG/ML VIAL IV PRN ×2 (01:42→21:23)
[2020-11-11] MEDS: INSULIN LISPRO 100 UNITS/ML SUBCUT SCH ×4 (06:00→18:05)
[2020-11-11] MEDS: DEXTROSE 50% WATER 50ML SYRINGE IV PRN (06:04)
[2020-11-11 07:13] LABS: CHLORIDE 115 mEq/L (98-107)
[2020-11-11 07:14] LABS: BASOPHILS % 0.5 % (0.0-2.0); EOSINOPHILS % 2.5 % (0.0-5.0); HEMATOCRIT. 33.4 % (36.0-48.0); HEMOGLOBIN. 10.7 g/dL (12.0-16.0); LYMPHOCYTES % 8.9 % (20.0-50.0); MEAN CORPUSCULAR HEMOGLOBIN 28.6 pg (28.0-32.0); MEAN CORPUSCULAR VOLUME 89.1 fL (81.0-99.0); MEAN PLATELET VOLUME 11.4 fl (7.4-10.4); MONOCYTES % 4.5 % (2.0-8.0); NEUTROPHILS % 83.6 % (40.0-76.0); PLATELET 157 x1000/uL (130-400); RED BLOOD CELL COUNT 3.74 mill/uL (4.2-5.4)
[2020-11-11 07:18] LABS: PHOSPHORUS 2.7 mg/dL (2.5-4.9)
[2020-11-11 08:00] VITALS: BP 130/70
[2020-11-11] MEDS: DOCUSATE SODIUM SUGAR FREE 100MG/10ML UDC NG SCH (09:00)
[2020-11-11] MEDS ORDERED: BARIUM SULFATE 176 GM SUSP.RECON ONE (09:01)
[2020-11-11] MEDS: SODIUM CHLORIDE 0.45% 1,000 ML IV SCH ×2 (10:08→21:58)
[2020-11-11] MEDS: INSULIN GLARGINE UD 100 UNITS/ML SYR SUBCUT SCH ×2 (10:09→22:00)
[2020-11-11] MEDS: FLUCONAZOLE 200MG/5ML ORAL SYR PO SCH (10:09)
[2020-11-11] MEDS: ENOXAPARIN 80MG/0.8ML SYR SUBCUT SCH ×2 (10:10→21:56)
[2020-11-11] MEDS: ACETAMINOPHEN 650MG/20.3ML UDC NG PRN ×2 (10:11→23:03)
[2020-11-11] MEDS: METHYLPREDNISOLONE SOD SUCC 40 MG/ML VIAL IV SCH (10:12)
[2020-11-11] MEDS: ASCORBIC ACID 500 MG TABLET PO SCH ×2 (10:12→21:56)
[2020-11-11] MEDS: OXYBUTYNIN CHLORIDE 5MG TABLET PO SCH ×2 (10:13→21:56)
[2020-11-11] MEDS: MULTIVITAMINS,THER W-MINERALS TABLET PO SCH (10:21)
[2020-11-11] MEDS: FAMOTIDINE 20MG/2ML VIAL IV SCH ×2 (10:21→21:57)
[2020-11-11] MEDS: LOSARTAN POTASSIUM 50 MG TABLET NG SCH (10:21)
[2020-11-11] MEDS: AMLODIPINE 5MG TABLET NG SCH ×2 (10:21→22:00)
[2020-11-11] MEDS ORDERED: POTASSIUM CHLORIDE 20MEQ/PACKET PO NR (11:30)
[2020-11-11 12:00] VITALS: BP 91/53
[2020-11-11] MEDS: THEOPHYLLINE ANHYDROUS 80 MG/15 ML 120ML NG SCH ×2 (12:20→23:05)
[2020-11-11 16:00] VITALS: BP 116/67
[2020-11-12] MEDS: BLOOD SUGAR DIAGNOSTIC STRIP TEST SCH ×4 (05:53→18:09)
[2020-11-12] MEDS: INSULIN LISPRO 100 UNITS/ML SUBCUT SCH ×4 (05:53→18:24)
[2020-11-12] MEDS: DEXTROSE 50% WATER 50ML SYRINGE IV PRN (05:53)
[2020-11-12 07:41] LABS: CHLORIDE 117 mEq/L (98-107)
[2020-11-12 07:48] LABS: PHOSPHORUS 1.9 mg/dL (2.5-4.9)
[2020-11-12 08:00] VITALS: BP 108/52
[2020-11-12 08:52] LABS: HEMATOCRIT. 38.1 % (36.0-48.0); HEMOGLOBIN. 12.2 g/dL (12.0-16.0); MEAN CORPUSCULAR HEMOGLOBIN 28.9 pg (28.0-32.0); MEAN CORPUSCULAR VOLUME 90.2 fL (81.0-99.0); MEAN PLATELET VOLUME 12.2 fl (7.4-10.4); PLATELET 158 x1000/uL (130-400); RED BLOOD CELL COUNT 4.22 mill/uL (4.2-5.4); RED CELL DISTRIBUTION WIDTH 14.2 % (11.6-14.6)
[2020-11-12] MEDS: AMLODIPINE 5MG TABLET NG SCH ×2 (08:58→20:06)
[2020-11-12] MEDS: ENOXAPARIN 80MG/0.8ML SYR SUBCUT SCH ×2 (08:58→20:06)
[2020-11-12] MEDS: METHYLPREDNISOLONE SOD SUCC 40 MG/ML VIAL IV SCH (08:58)
[2020-11-12] MEDS: OXYBUTYNIN CHLORIDE 5MG TABLET PO SCH ×2 (08:58→20:06)
[2020-11-12] MEDS: MULTIVITAMINS,THER W-MINERALS TABLET PO SCH (08:58)
[2020-11-12] MEDS: LOSARTAN POTASSIUM 50 MG TABLET NG SCH (08:58)
[2020-11-12] MEDS: THEOPHYLLINE ANHYDROUS 80 MG/15 ML 120ML NG SCH ×2 (08:59→20:06)
[2020-11-12] MEDS: DOCUSATE SODIUM SUGAR FREE 100MG/10ML UDC NG SCH (09:00)
[2020-11-12] MEDS: FLUCONAZOLE 200MG/5ML ORAL SYR PO SCH (09:28)
[2020-11-12] MEDS: ASCORBIC ACID 500 MG TABLET PO SCH ×2 (09:28→20:06)
[2020-11-12] MEDS ORDERED: POTASSIUM PHOS,M-BASIC-D-BASIC 15 MMOL in DEXT 5% WATER 245 ML IV NR (10:00)
[2020-11-12] MEDS: FAMOTIDINE 20MG/2ML VIAL IV SCH ×2 (10:40→20:06)
[2020-11-12] MEDS: SODIUM CHLORIDE 0.45% 1,000 ML IV SCH (10:40)
[2020-11-12] MEDS: ACETAMINOPHEN 650MG/20.3ML UDC NG PRN (11:34)
[2020-11-12 12:00] VITALS: BP 107/63
[2020-11-12] MEDS ORDERED: POTASSIUM PHOS,M-BASIC-D-BASIC 20 MMOL in DEXT 5% WATER 243.3333 ML IV NR (12:00)
[2020-11-12 16:00] VITALS: BP 109/55
[2020-11-12 17:51] VITALS: BP 109/55
[2020-11-12 20:00] VITALS: BP 112/59
[2020-11-12 22:23] LABS: PLATELET ESTIMATE NORMAL
[2020-11-13] VITALS (11 sets, daily range): BP systolic 100–138; BP diastolic 50–74
[2020-11-13] MEDS: INSULIN LISPRO 100 UNITS/ML SUBCUT SCH ×4 (00:30→23:42)
[2020-11-13] MEDS: DIPHENHYDRAMINE 50MG/ML VIAL IV PRN ×2 (00:36→22:47)
[2020-11-13] MEDS: BLOOD SUGAR DIAGNOSTIC STRIP TEST SCH ×5 (06:00→23:36)
[2020-11-13] MEDS: DEXTROSE 50% WATER 50ML SYRINGE IV PRN (06:19)
[2020-11-13 08:21] LABS: CHLORIDE 111 mEq/L (98-107)
[2020-11-13 08:27] LABS: PHOSPHORUS 1.7 mg/dL (2.5-4.9)
[2020-11-13 08:42] LABS: BASOPHILS % 0.5 % (0.0-2.0); EOSINOPHILS % 2.6 % (0.0-5.0); HEMATOCRIT. 33.9 % (36.0-48.0); HEMOGLOBIN. 11.1 g/dL (12.0-16.0); LYMPHOCYTES % 10.4 % (20.0-50.0); MEAN CORPUSCULAR HEMOGLOBIN 28.8 pg (28.0-32.0); MEAN CORPUSCULAR VOLUME 87.6 fL (81.0-99.0); MEAN PLATELET VOLUME 12.3 fl (7.4-10.4); MONOCYTES % 5.3 % (2.0-8.0); NEUTROPHILS % 81.2 % (40.0-76.0); PLATELET 117 x1000/uL (130-400); RED BLOOD CELL COUNT 3.87 mill/uL (4.2-5.4); RED CELL DISTRIBUTION WIDTH 13.9 % (11.6-14.6)
[2020-11-13] MEDS: DOCUSATE SODIUM SUGAR FREE 100MG/10ML UDC NG SCH (09:00)
[2020-11-13] MEDS: THEOPHYLLINE ANHYDROUS 80 MG/15 ML 120ML NG SCH ×2 (10:06→20:35)
[2020-11-13] MEDS: FAMOTIDINE 20MG/2ML VIAL IV SCH ×2 (10:07→20:35)
[2020-11-13] MEDS: FLUCONAZOLE 200MG/5ML ORAL SYR PO SCH (10:07)
[2020-11-13] MEDS: ASCORBIC ACID 500 MG TABLET PO SCH ×2 (10:07→20:35)
[2020-11-13] MEDS: PREDNISONE 20MG TABLET PO SCH (10:08)
[2020-11-13] MEDS: AMLODIPINE 5MG TABLET NG SCH ×2 (10:08→20:35)
[2020-11-13] MEDS: LOSARTAN POTASSIUM 50 MG TABLET NG SCH (10:08)
[2020-11-13] MEDS: OXYBUTYNIN CHLORIDE 5MG TABLET PO SCH ×2 (10:08→20:35)
[2020-11-13] MEDS: MULTIVITAMINS,THER W-MINERALS TABLET PO SCH (10:09)
[2020-11-13] MEDS ORDERED: POTASSIUM PHOS,M-BASIC-D-BASIC 30 MMOL in DEXT 5% WATER 500 ML IV NR (10:30)
[2020-11-13] MEDS: ENOXAPARIN 80MG/0.8ML SYR SUBCUT SCH ×2 (13:12→20:36)
[2020-11-13] MEDS: SODIUM CHLORIDE 0.45% 1,000 ML IV SCH (17:57)
[2020-11-14 06:00] VITALS: BP 109/61
[2020-11-14] MEDS: BLOOD SUGAR DIAGNOSTIC STRIP TEST SCH ×4 (06:00→21:33)
[2020-11-14] MEDS: INSULIN LISPRO 100 UNITS/ML SUBCUT SCH ×4 (06:21→21:38)
[2020-11-14 08:23] LABS: BASOPHILS % 0.3 % (0.0-2.0); EOSINOPHILS % 2.3 % (0.0-5.0); HEMATOCRIT. 32.5 % (36.0-48.0); HEMOGLOBIN. 10.7 g/dL (12.0-16.0); MEAN CORPUSCULAR HEMOGLOBIN 28.3 pg (28.0-32.0); MEAN CORPUSCULAR VOLUME 85.6 fL (81.0-99.0); MEAN PLATELET VOLUME 10.5 fl (7.4-10.4); MONOCYTES % 5.6 % (2.0-8.0); NEUTROPHILS % 82.8 % (40.0-76.0); PLATELET 87 x1000/uL (130-400); RED CELL DISTRIBUTION WIDTH 13.9 % (11.6-14.6)
[2020-11-14 08:37] LABS: CHLORIDE 108 mEq/L (98-107)
[2020-11-14] MEDS: ERGOCALCIFEROL 50000UNITS CAPSULE PO SCH (08:47)
[2020-11-14] MEDS: OXYBUTYNIN CHLORIDE 5MG TABLET PO SCH ×2 (08:47→20:53)
[2020-11-14] MEDS: ASCORBIC ACID 500 MG TABLET PO SCH ×2 (08:47→20:53)
[2020-11-14] MEDS: AMLODIPINE 5MG TABLET NG SCH ×2 (08:52→20:54)
[2020-11-14] MEDS: DOCUSATE SODIUM SUGAR FREE 100MG/10ML UDC NG SCH (08:54)
[2020-11-14] MEDS: LOSARTAN POTASSIUM 50 MG TABLET NG SCH (08:55)
[2020-11-14] MEDS: FAMOTIDINE 20MG/2ML VIAL IV SCH (08:55)
[2020-11-14] MEDS: ENOXAPARIN 80MG/0.8ML SYR SUBCUT SCH ×2 (09:03→20:54)
[2020-11-14] MEDS: MULTIVITAMINS,THER W-MINERALS TABLET PO SCH (09:04)
[2020-11-14] MEDS: PREDNISONE 20MG TABLET PO SCH (09:04)
[2020-11-14] MEDS: THEOPHYLLINE ANHYDROUS 80 MG/15 ML 120ML NG SCH (09:06)
[2020-11-14] MEDS ORDERED: SODIUM PHOS,M-BASIC-D-BASIC 15 MM in DEXT 5% WATER 245 ML IV ONE (11:00)
[2020-11-14 12:00] VITALS: BP 122/71
[2020-11-14] MEDS ORDERED: INSULIN GLARGINE UD 100 UNITS/ML SYR SUBCUT SCH (14:00)
[2020-11-14 18:00] VITALS: BP 101/60
[2020-11-14] MEDS ORDERED: INSULIN LISPRO 100 UNITS/ML SUBCUT PRN (18:00)
[2020-11-14] MEDS: INSULIN LISPRO 100 UNITS/ML SUBCUT PRN (18:03)
[2020-11-14 20:00] VITALS: BP 112/66
[2020-11-14] MEDS: FAMOTIDINE 20MG TABLET PO SCH (20:53)
[2020-11-15] VITALS: BP 104/63
[2020-11-15] MEDS: ACETAMINOPHEN 650MG/20.3ML UDC NG PRN (05:40)
[2020-11-15 06:00] VITALS: BP 126/61
[2020-11-15] MEDS: INSULIN LISPRO 100 UNITS/ML SUBCUT SCH ×4 (07:30→20:33)
[2020-11-15] MEDS: BLOOD SUGAR DIAGNOSTIC STRIP TEST SCH ×4 (08:10→20:33)
[2020-11-15] MEDS: PREDNISONE 20MG TABLET PO SCH (08:13)
[2020-11-15] MEDS: LOSARTAN POTASSIUM 50 MG TABLET NG SCH (08:13)
[2020-11-15] MEDS: MULTIVITAMINS,THER W-MINERALS TABLET PO SCH (08:13)
[2020-11-15] MEDS: OXYBUTYNIN CHLORIDE 5MG TABLET PO SCH ×2 (08:13→20:32)
[2020-11-15] MEDS: FAMOTIDINE 20MG TABLET PO SCH ×2 (08:13→20:32)
[2020-11-15] MEDS: DOCUSATE SODIUM SUGAR FREE 100MG/10ML UDC NG SCH (08:14)
[2020-11-15] MEDS: AMLODIPINE 5MG TABLET NG SCH ×2 (08:21→20:32)
[2020-11-15] MEDS: ASCORBIC ACID 500 MG TABLET PO SCH ×2 (08:21→20:32)
[2020-11-15] MEDS: ENOXAPARIN 80MG/0.8ML SYR SUBCUT SCH ×2 (08:22→20:33)
[2020-11-15] MEDS ORDERED: INSULIN GLARGINE UD 100 UNITS/ML SYR SUBCUT SCH (10:00)
[2020-11-15 10:33] LABS: BASOPHILS % 0.1 % (0.0-2.0); EOSINOPHILS % 1.5 % (0.0-5.0); HEMATOCRIT. 30.2 % (36.0-48.0); HEMOGLOBIN. 10.1 g/dL (12.0-16.0); LYMPHOCYTES % 7.4 % (20.0-50.0); MEAN CORPUSCULAR HEMOGLOBIN 28.7 pg (28.0-32.0); MEAN CORPUSCULAR VOLUME 85.7 fL (81.0-99.0); MONOCYTES % 5.9 % (2.0-8.0); NEUTROPHILS % 85.1 % (40.0-76.0); PLATELET 84 x1000/uL (130-400); RED BLOOD CELL COUNT 3.52 mill/uL (4.2-5.4); RED CELL DISTRIBUTION WIDTH 13.8 % (11.6-14.6)
[2020-11-15 10:43] LABS: CHLORIDE 104 mEq/L (98-107)
[2020-11-15 12:00] VITALS: BP 124/60
[2020-11-15 18:00] VITALS: BP 116/68
[2020-11-15] MEDS: ERGOCALCIFEROL 50000UNITS CAPSULE PO SCH (18:07)
[2020-11-15 20:00] VITALS: BP 102/67
[2020-11-15] MEDS: HYDROCODONE/ACETAMINOPHEN 5/325MG TABLET PO PRN (20:56)
[2020-11-15 22:00] VITALS: BP 102/70
[2020-11-16] VITALS (7 sets, daily range): BP systolic 75–119; BP diastolic 52–73
[2020-11-16] MEDS: HYDROCODONE/ACETAMINOPHEN 5/325MG TABLET PO PRN ×4 (00:15→18:46)
[2020-11-16 06:36] LABS: CHLORIDE 105 mEq/L (98-107)
[2020-11-16 06:52] LABS: PHOSPHORUS 2.5 mg/dL (2.5-4.9)
[2020-11-16 06:57] LABS: BASOPHILS % 0.3 % (0.0-2.0); EOSINOPHILS % 1.7 % (0.0-5.0); HEMATOCRIT. 31.9 % (36.0-48.0); HEMOGLOBIN. 10.4 g/dL (12.0-16.0); LYMPHOCYTES % 8.4 % (20.0-50.0); MEAN CORPUSCULAR HEMOGLOBIN 28.1 pg (28.0-32.0); MEAN CORPUSCULAR VOLUME 85.9 fL (81.0-99.0); MEAN PLATELET VOLUME 10.6 fl (7.4-10.4); MONOCYTES % 6.7 % (2.0-8.0); NEUTROPHILS % 82.9 % (40.0-76.0); PLATELET 105 x1000/uL (130-400); RED BLOOD CELL COUNT 3.72 mill/uL (4.2-5.4); RED CELL DISTRIBUTION WIDTH 14.3 % (11.6-14.6)
[2020-11-16] MEDS: INSULIN LISPRO 100 UNITS/ML SUBCUT SCH ×4 (07:30→20:24)
[2020-11-16] MEDS: BLOOD SUGAR DIAGNOSTIC STRIP TEST SCH ×4 (07:59→20:17)
[2020-11-16] MEDS: MULTIVITAMINS,THER W-MINERALS TABLET PO SCH (08:28)
[2020-11-16] MEDS: FAMOTIDINE 20MG TABLET PO SCH ×2 (08:28→20:23)
[2020-11-16] MEDS: PREDNISONE 20MG TABLET PO SCH (08:28)
[2020-11-16] MEDS: DOCUSATE SODIUM SUGAR FREE 100MG/10ML UDC NG SCH (08:28)
[2020-11-16] MEDS: AMLODIPINE 5MG TABLET NG SCH ×2 (08:28→20:23)
[2020-11-16] MEDS: LOSARTAN POTASSIUM 50 MG TABLET NG SCH (08:31)
[2020-11-16] MEDS: OXYBUTYNIN CHLORIDE 5MG TABLET PO SCH ×2 (08:31→20:23)
[2020-11-16] MEDS: ENOXAPARIN 80MG/0.8ML SYR SUBCUT SCH ×2 (08:33→08:42)
[2020-11-16] MEDS ORDERED: FUROSEMIDE 20MG/2ML VIAL IVP NR (09:00)
[2020-11-16] MEDS ORDERED: LIDOCAINE HCL/PF 1% 2ML VIAL ONE (09:00)
[2020-11-16 09:34] LABS: BG BASE EXCESS -2.2 mmol/L (-2.0-2.0); BG CARBOXYHEMOGLOBIN 0.1 % (0.5-1.5); BG DEOXYHEMOGLOBIN 5.3 % (0.0-5.0); BG HCO3 ACT 21.1 mmol/L (22.0-26.0); BG METHEMOGLOBIN 0.1 % (0.0-1.5); BG OXYGEN SATURATION 94.7 % (92.0-98.5); BG OXYHEMOGLOBIN 94.5 % (94.0-97.0); BG PCO2 31.7 mmHg (35.0-45.0); BG PH 7.442 (7.350-7.450); BG PO2 68.6 mmHg (75.0-100.0); BG SAMPLE SITE RIGHT RADIAL; BG TOTAL HEMOGLOBIN 11.5 g/dL (12.0-18.0); BG VENT MODE NASAL CANNULA
[2020-11-16] MEDS: INSULIN GLARGINE UD 100 UNITS/ML SYR SUBCUT SCH (10:00)
[2020-11-16] MEDS ORDERED: VANCOMYCIN 1 G PREMIX 200 ML IV SCH (17:00)
[2020-11-16] MEDS: CEFEPIME 1,000 MG in DEXTROSE 5% WATER 50 ML IV SCH (18:52)
[2020-11-17] VITALS: BP 118/71
[2020-11-17] MEDS: HYDROCODONE/ACETAMINOPHEN 5/325MG TABLET PO PRN ×2 (04:23→10:07)
[2020-11-17] MEDS ORDERED: VANCOMYCIN 750 MG PREMIX 150 ML IV SCH (05:00)
[2020-11-17] MEDS: CEFEPIME 1,000 MG in DEXTROSE 5% WATER 50 ML IV SCH ×2 (05:54→17:33)
[2020-11-17 06:00] VITALS: BP 96/47
[2020-11-17 06:33] LABS: HEMATOCRIT. 28.6 % (36.0-48.0); HEMOGLOBIN. 9.5 g/dL (12.0-16.0); MEAN CORPUSCULAR HEMOGLOBIN 28.6 pg (28.0-32.0); MEAN CORPUSCULAR VOLUME 85.7 fL (81.0-99.0); MEAN PLATELET VOLUME 10.6 fl (7.4-10.4); PLATELET 110 x1000/uL (130-400); RED BLOOD CELL COUNT 3.33 mill/uL (4.2-5.4)
[2020-11-17 07:20] LABS: CHLORIDE 102 mEq/L (98-107)
[2020-11-17 07:25] LABS: PHOSPHORUS 2.3 mg/dL (2.5-4.9)
[2020-11-17] MEDS: BLOOD SUGAR DIAGNOSTIC STRIP TEST SCH ×4 (07:30→20:49)
[2020-11-17 08:00] VITALS: BP 101/50
[2020-11-17] MEDS: LOSARTAN POTASSIUM 50 MG TABLET NG SCH (09:00)
[2020-11-17] MEDS: AMLODIPINE 5MG TABLET NG SCH ×2 (09:00→20:47)
[2020-11-17 10:00] VITALS: BP 105/74
[2020-11-17] MEDS: PREDNISONE 20MG TABLET PO SCH (10:06)
[2020-11-17] MEDS: FAMOTIDINE 20MG TABLET PO SCH ×2 (10:06→20:48)
[2020-11-17] MEDS: MULTIVITAMINS,THER W-MINERALS TABLET PO SCH (10:07)
[2020-11-17] MEDS: ENOXAPARIN 80MG/0.8ML SYR SUBCUT SCH ×2 (10:08→20:49)
[2020-11-17] MEDS: INSULIN GLARGINE UD 100 UNITS/ML SYR SUBCUT SCH (10:14)
[2020-11-17] MEDS: INSULIN LISPRO 100 UNITS/ML SUBCUT SCH ×4 (10:17→21:27)
[2020-11-17 12:00] VITALS: BP 110/56
[2020-11-17] MEDS: OXYBUTYNIN CHLORIDE 5MG TABLET PO SCH ×2 (12:50→20:48)
[2020-11-17] MEDS: DOCUSATE SODIUM SUGAR FREE 100MG/10ML UDC NG SCH (12:51)
[2020-11-17] MEDS: VANCOMYCIN 1 G PREMIX 200 ML IV SCH (13:10)
[2020-11-17 15:33] LABS: PLATELET ESTIMATE DECREASED
[2020-11-17 18:00] VITALS: BP 106/59
[2020-11-18] VITALS: BP 98/21
[2020-11-18] MEDS: VANCOMYCIN 1 G PREMIX 200 ML IV SCH ×2 (04:17→13:54)
[2020-11-18 06:00] VITALS: BP 116/55
[2020-11-18 06:05] LABS: HEMATOCRIT. 26.2 % (36.0-48.0); HEMOGLOBIN. 8.9 g/dL (12.0-16.0); MEAN CORPUSCULAR HEMOGLOBIN 28.9 pg (28.0-32.0); MEAN PLATELET VOLUME 10.2 fl (7.4-10.4); PLATELET 112 x1000/uL (130-400); RED BLOOD CELL COUNT 3.08 mill/uL (4.2-5.4)
[2020-11-18 06:06] LABS: CHLORIDE 104 mEq/L (98-107)
[2020-11-18 06:14] LABS: PHOSPHORUS 2.1 mg/dL (2.5-4.9)
[2020-11-18 06:16] LABS: CREATINE KINASE 12 IU/L (26-192)
[2020-11-18] MEDS: CEFEPIME 1,000 MG in DEXTROSE 5% WATER 50 ML IV SCH ×2 (06:39→18:32)
[2020-11-18] MEDS: BLOOD SUGAR DIAGNOSTIC STRIP TEST SCH ×4 (07:30→21:20)
[2020-11-18] MEDS: INSULIN LISPRO 100 UNITS/ML SUBCUT SCH ×4 (07:30→22:04)
[2020-11-18] MEDS: ENOXAPARIN 80MG/0.8ML SYR SUBCUT SCH (09:00)
[2020-11-18] MEDS ORDERED: SODIUM PHOS,M-BASIC-D-BASIC 30 MM in DEXT 5% WATER 500 ML IV NR (09:00)
[2020-11-18] MEDS: DOCUSATE SODIUM SUGAR FREE 100MG/10ML UDC NG SCH (10:18)
[2020-11-18] MEDS: MULTIVITAMINS,THER W-MINERALS TABLET PO SCH (10:19)
[2020-11-18] MEDS: PREDNISONE 20MG TABLET PO SCH (10:19)
[2020-11-18] MEDS: FAMOTIDINE 20MG TABLET PO SCH ×2 (10:19→22:02)
[2020-11-18] MEDS: OXYBUTYNIN CHLORIDE 5MG TABLET PO SCH ×2 (10:19→22:02)
[2020-11-18] MEDS: LOSARTAN POTASSIUM 50 MG TABLET NG SCH (10:20)
[2020-11-18] MEDS: AMLODIPINE 5MG TABLET NG SCH ×2 (10:20→21:00)
[2020-11-18] MEDS: INSULIN GLARGINE UD 100 UNITS/ML SYR SUBCUT SCH (10:28)
[2020-11-18 12:00] VITALS: BP 115/64
[2020-11-18 16:38] LABS: PLATELET ESTIMATE DECREASED
[2020-11-18 18:00] VITALS: BP 117/57
[2020-11-18 20:00] VITALS: BP 103/57
[2020-11-18] MEDS ORDERED: APIXABAN 5 MG TABLET PO ONE (20:00)
[2020-11-18] MEDS: APIXABAN 5 MG TABLET PO SCH (22:02)
[2020-11-19] VITALS: BP 109/58
[2020-11-19] MEDS: VANCOMYCIN 1 G PREMIX 200 ML IV SCH (01:09)
[2020-11-19 05:01] VITALS: BP 110/60
[2020-11-19] MEDS: CEFEPIME 1,000 MG in DEXTROSE 5% WATER 50 ML IV SCH ×2 (05:37→18:02)
[2020-11-19] MEDS: INSULIN LISPRO 100 UNITS/ML SUBCUT SCH ×4 (06:21→22:22)
[2020-11-19] MEDS: BLOOD SUGAR DIAGNOSTIC STRIP TEST SCH ×4 (06:22→21:00)
[2020-11-19 06:29] LABS: BASOPHILS % 0.4 % (0.0-2.0); EOSINOPHILS % 1.1 % (0.0-5.0); HEMATOCRIT. 27.8 % (36.0-48.0); HEMOGLOBIN. 9.1 g/dL (12.0-16.0); LYMPHOCYTES % 7.4 % (20.0-50.0); MEAN CORPUSCULAR HEMOGLOBIN 27.7 pg (28.0-32.0); MEAN CORPUSCULAR VOLUME 84.6 fL (81.0-99.0); MEAN PLATELET VOLUME 9.8 fl (7.4-10.4); NEUTROPHILS % 87.1 % (40.0-76.0); PLATELET 164 x1000/uL (130-400); RED BLOOD CELL COUNT 3.29 mill/uL (4.2-5.4); RED CELL DISTRIBUTION WIDTH 14.2 % (11.6-14.6)
[2020-11-19 06:39] LABS: CHLORIDE 104 mEq/L (98-107)
[2020-11-19 06:51] LABS: PHOSPHORUS 3.4 mg/dL (2.5-4.9)
[2020-11-19] MEDS ORDERED: POTASSIUM CHLORIDE 20MEQ TABLET SR PO SCH (07:30)
[2020-11-19 08:25] VITALS: BP 112/60
[2020-11-19] MEDS: DOCUSATE SODIUM SUGAR FREE 100MG/10ML UDC NG SCH (08:42)
[2020-11-19] MEDS: FAMOTIDINE 20MG TABLET PO SCH ×2 (08:42→22:00)
[2020-11-19] MEDS: AMLODIPINE 5MG TABLET NG SCH ×2 (08:42→21:00)
[2020-11-19] MEDS: PREDNISONE 10MG TABLET PO SCH (08:42)
[2020-11-19] MEDS: MULTIVITAMINS,THER W-MINERALS TABLET PO SCH (08:42)
[2020-11-19] MEDS: APIXABAN 5 MG TABLET PO SCH ×2 (08:45→17:57)
[2020-11-19] MEDS: LOSARTAN POTASSIUM 50 MG TABLET NG SCH (08:45)
[2020-11-19] MEDS: OXYBUTYNIN CHLORIDE 5MG TABLET PO SCH ×2 (08:45→22:00)
[2020-11-19] MEDS: INSULIN GLARGINE UD 100 UNITS/ML SYR SUBCUT SCH (10:14)
[2020-11-19] MEDS: LACTULOSE 20G/30ML UDC PO SCH (16:01)
[2020-11-19] MEDS ORDERED: NA PHOS,M-B/NA PHOS,DI-BA ENEMA 118ML PR NR (16:30)
[2020-11-19 17:34] VITALS: BP 120/71
[2020-11-19 20:00] VITALS: BP 114/64
[2020-11-19] MEDS: VANCOMYCIN 750 MG PREMIX 150 ML IV SCH (22:00)
[2020-11-19] MEDS: HYDROCODONE/ACETAMINOPHEN 5/325MG TABLET PO PRN (22:01)
[2020-11-20] VITALS: BP 114/68
[2020-11-20 06:00] VITALS: BP 110/68
[2020-11-20 06:10] LABS: BASOPHILS % 0.3 % (0.0-2.0); EOSINOPHILS % 1.5 % (0.0-5.0); HEMATOCRIT. 27.9 % (36.0-48.0); HEMOGLOBIN. 9.2 g/dL (12.0-16.0); MEAN CORPUSCULAR HEMOGLOBIN 28.4 pg (28.0-32.0); MEAN CORPUSCULAR VOLUME 85.7 fL (81.0-99.0); MEAN PLATELET VOLUME 9.7 fl (7.4-10.4); MONOCYTES % 4.5 % (2.0-8.0); NEUTROPHILS % 85.7 % (40.0-76.0); PLATELET 195 x1000/uL (130-400); RED BLOOD CELL COUNT 3.26 mill/uL (4.2-5.4); RED CELL DISTRIBUTION WIDTH 14.3 % (11.6-14.6)
[2020-11-20] MEDS: CEFEPIME 1,000 MG in DEXTROSE 5% WATER 50 ML IV SCH ×2 (06:22→17:12)
[2020-11-20] MEDS: INSULIN LISPRO 100 UNITS/ML SUBCUT SCH ×4 (06:23→21:48)
[2020-11-20] MEDS: BLOOD SUGAR DIAGNOSTIC STRIP TEST SCH ×4 (06:23→21:05)
[2020-11-20 06:31] LABS: CHLORIDE 105 mEq/L (98-107)
[2020-11-20 08:27] VITALS: BP 132/75
[2020-11-20] MEDS: LOSARTAN POTASSIUM 50 MG TABLET NG SCH (08:31)
[2020-11-20] MEDS: MULTIVITAMINS,THER W-MINERALS TABLET PO SCH (08:31)
[2020-11-20] MEDS: OXYBUTYNIN CHLORIDE 5MG TABLET PO SCH ×2 (08:31→21:04)
[2020-11-20] MEDS: FAMOTIDINE 20MG TABLET PO SCH ×2 (08:31→21:04)
[2020-11-20] MEDS: LACTULOSE 20G/30ML UDC PO SCH ×2 (08:31→08:52)
[2020-11-20] MEDS: AMLODIPINE 5MG TABLET NG SCH ×2 (08:32→21:04)
[2020-11-20] MEDS: VANCOMYCIN 750 MG PREMIX 150 ML IV SCH ×2 (08:32→20:23)
[2020-11-20] MEDS: PREDNISONE 10MG TABLET PO SCH (08:32)
[2020-11-20] MEDS: DOCUSATE SODIUM SUGAR FREE 100MG/10ML UDC NG SCH ×2 (08:38→08:52)
[2020-11-20] MEDS ORDERED: POTASSIUM CHLORIDE 20MEQ TABLET SR PO SCH (09:15)
[2020-11-20] MEDS: APIXABAN 5 MG TABLET PO SCH ×2 (10:25→16:52)
[2020-11-20] MEDS: INSULIN GLARGINE UD 100 UNITS/ML SYR SUBCUT SCH (10:29)
[2020-11-20 12:34] LABS: BG BASE EXCESS 0.2 mmol/L (-2.0-2.0); BG CARBOXYHEMOGLOBIN 0.3 % (0.5-1.5); BG DEOXYHEMOGLOBIN 7.2 % (0.0-5.0); BG HCO3 ACT 23.4 mmol/L (22.0-26.0); BG METHEMOGLOBIN 0.3 % (0.0-1.5); BG OXYGEN SATURATION 92.8 % (92.0-98.5); BG OXYHEMOGLOBIN 92.2 % (94.0-97.0); BG PCO2 32.4 mmHg (35.0-45.0); BG PH 7.476 (7.350-7.450); BG SAMPLE SITE RIGHT RADIAL; BG TOTAL HEMOGLOBIN 9.4 g/dL (12.0-18.0); BG VENT MODE ROOM AIR
[2020-11-20 16:13] VITALS: BP 117/61
[2020-11-20] MEDS: FUROSEMIDE 40MG/4ML VIAL IVP SCH (17:11)
[2020-11-20] MEDS: TRAMADOL 50MG TABLET PO PRN (17:33)
[2020-11-20 18:00] VITALS: BP 117/61
[2020-11-20 18:24] LABS: PHOSPHORUS 3.3 mg/dL (2.5-4.9)
[2020-11-20 20:00] VITALS: BP 107/67
[2020-11-21] VITALS: BP 112/57
[2020-11-21 04:00] VITALS: BP 101/56
[2020-11-21] MEDS: CEFEPIME 1,000 MG in DEXTROSE 5% WATER 50 ML IV SCH ×2 (05:46→19:15)
[2020-11-21] MEDS: BLOOD SUGAR DIAGNOSTIC STRIP TEST SCH ×4 (05:46→21:00)
[2020-11-21] MEDS: INSULIN LISPRO 100 UNITS/ML SUBCUT SCH ×4 (05:47→21:00)
[2020-11-21 07:21] LABS: BASOPHILS % 0.4 % (0.0-2.0); CHLORIDE 100 mEq/L (98-107); EOSINOPHILS % 1.5 % (0.0-5.0); HEMATOCRIT. 29.3 % (36.0-48.0); HEMOGLOBIN. 9.5 g/dL (12.0-16.0); LYMPHOCYTES % 7.8 % (20.0-50.0); MEAN CORPUSCULAR HEMOGLOBIN 28.1 pg (28.0-32.0); MEAN PLATELET VOLUME 9.5 fl (7.4-10.4); MONOCYTES % 5.1 % (2.0-8.0); NEUTROPHILS % 85.2 % (40.0-76.0); PLATELET 236 x1000/uL (130-400); RED CELL DISTRIBUTION WIDTH 14.4 % (11.6-14.6)
[2020-11-21 07:38] LABS: PHOSPHORUS 2.4 mg/dL (2.5-4.9)
[2020-11-21] MEDS ORDERED: SODIUM PHOS,M-BASIC-D-BASIC 15 MM in DEXT 5% WATER 245 ML IV NR (09:30)
[2020-11-21] MEDS: VANCOMYCIN 750 MG PREMIX 150 ML IV SCH ×2 (09:55→21:36)
[2020-11-21] MEDS: FUROSEMIDE 40MG/4ML VIAL IVP SCH (10:03)
[2020-11-21] MEDS: DOCUSATE SODIUM SUGAR FREE 100MG/10ML UDC NG SCH (10:11)
[2020-11-21] MEDS: LOSARTAN POTASSIUM 50 MG TABLET NG SCH (10:14)
[2020-11-21] MEDS: LACTULOSE 20G/30ML UDC PO SCH (10:23)
[2020-11-21] MEDS: AMLODIPINE 5MG TABLET NG SCH ×2 (10:23→21:48)
[2020-11-21] MEDS: OXYBUTYNIN CHLORIDE 5MG TABLET PO SCH ×2 (10:25→21:48)
[2020-11-21] MEDS: APIXABAN 5 MG TABLET PO SCH ×2 (10:25→19:12)
[2020-11-21] MEDS: PREDNISONE 10MG TABLET PO SCH (10:25)
[2020-11-21] MEDS: FAMOTIDINE 20MG TABLET PO SCH ×2 (10:26→21:48)
[2020-11-21] MEDS: MULTIVITAMINS,THER W-MINERALS TABLET PO SCH (10:26)
[2020-11-21] MEDS: INSULIN GLARGINE UD 100 UNITS/ML SYR SUBCUT SCH (10:29)
[2020-11-21] MEDS: TRAMADOL 50MG TABLET PO PRN (10:34)
[2020-11-21] MEDS ORDERED: SODIUM CHLORIDE 0.9% 1000ML BAG (SEPSIS BOLUS) IV NR (17:30)
[2020-11-21 18:30] VITALS: BP 95/56
[2020-11-21 20:00] VITALS: BP 139/65
[2020-11-21] MEDS: FLUTICASONE PROPIONATE 50MCG/SPRAY BOTTLE BOTHNSTRLS SCH (21:00)
[2020-11-21 21:09] LABS: HEMATOCRIT. 27.1 % (36.0-48.0); HEMOGLOBIN. 8.8 g/dL (12.0-16.0); MEAN CORPUSCULAR HEMOGLOBIN 27.8 pg (28.0-32.0); MEAN CORPUSCULAR VOLUME 85.9 fL (81.0-99.0); MEAN PLATELET VOLUME 9.7 fl (7.4-10.4); PLATELET 257 x1000/uL (130-400); RED BLOOD CELL COUNT 3.15 mill/uL (4.2-5.4); RED CELL DISTRIBUTION WIDTH 14.7 % (11.6-14.6)
[2020-11-21 21:12] VITALS: BP 95/56
[2020-11-21 21:20] LABS: CHLORIDE 96 mEq/L (98-107)
[2020-11-21 22:44] LABS: PLATELET ESTIMATE NORMAL
[2020-11-22] VITALS: BP_SYST 133; BP_DIAS 65; BP_DIAS 68
[2020-11-22 04:00] VITALS: BP 106/55
[2020-11-22] MEDS: TRAMADOL 50MG TABLET PO PRN (04:15)
[2020-11-22 08:00] VITALS: BP 105/58
[2020-11-22 08:27] LABS: BASOPHILS % 0.4 % (0.0-2.0); EOSINOPHILS % 1.2 % (0.0-5.0); HEMOGLOBIN. 8.9 g/dL (12.0-16.0); LYMPHOCYTES % 8.2 % (20.0-50.0); MEAN CORPUSCULAR HEMOGLOBIN 27.9 pg (28.0-32.0); MEAN CORPUSCULAR VOLUME 84.5 fL (81.0-99.0); MEAN PLATELET VOLUME 9.2 fl (7.4-10.4); MONOCYTES % 4.5 % (2.0-8.0); NEUTROPHILS % 85.7 % (40.0-76.0); PLATELET 256 x1000/uL (130-400); RED BLOOD CELL COUNT 3.19 mill/uL (4.2-5.4); RED CELL DISTRIBUTION WIDTH 14.5 % (11.6-14.6)
[2020-11-22 08:28] LABS: CHLORIDE 105 mEq/L (98-107)
[2020-11-22 08:34] LABS: PHOSPHORUS 2.7 mg/dL (2.5-4.9)
[2020-11-22] MEDS: LOSARTAN POTASSIUM 50 MG TABLET NG SCH (09:00)
[2020-11-22] MEDS: AMLODIPINE 5MG TABLET NG SCH ×2 (09:00→20:59)
[2020-11-22] MEDS: OXYBUTYNIN CHLORIDE 5MG TABLET PO SCH ×2 (09:28→21:00)
[2020-11-22] MEDS: MULTIVITAMINS,THER W-MINERALS TABLET PO SCH (09:28)
[2020-11-22] MEDS: PREDNISONE 10MG TABLET PO SCH (09:28)
[2020-11-22] MEDS: APIXABAN 5 MG TABLET PO SCH ×2 (09:28→17:47)
[2020-11-22] MEDS: FAMOTIDINE 20MG TABLET PO SCH ×2 (09:28→21:00)
[2020-11-22] MEDS: DOCUSATE SODIUM SUGAR FREE 100MG/10ML UDC NG SCH (09:29)
[2020-11-22] MEDS: BLOOD SUGAR DIAGNOSTIC STRIP TEST SCH ×4 (09:37→21:36)
[2020-11-22] MEDS: LACTULOSE 20G/30ML UDC PO SCH (09:37)
[2020-11-22 09:53] LABS: CLARITY URINE CLEAR (CLEAR); COLOR URINE YELLOW (YELLOW); KETONES URINE NEGATIVE (NEGATIVE); LEUKOCYTE ESTERASE URINE TRACE (NEGATIVE); NITRITE URINE NEGATIVE (NEGATIVE); OCCULT BLOOD URINE TRACE (NEGATIVE); PROTEIN URINE 1+ (NEGATIVE); SPECIFIC GRAVITY URINE 1.011 (1.005-1.030); UROBILINOGEN URINE 0.2 E.U./dL (0.2-1.0)
[2020-11-22] MEDS: INSULIN LISPRO 100 UNITS/ML SUBCUT SCH ×4 (10:00→21:41)
[2020-11-22] MEDS: FLUTICASONE PROPIONATE 50MCG/SPRAY BOTTLE BOTHNSTRLS SCH ×2 (10:01→20:59)
[2020-11-22] MEDS: INSULIN GLARGINE UD 100 UNITS/ML SYR SUBCUT SCH (10:01)
[2020-11-22 16:00] VITALS: BP 111/60
[2020-11-22] MEDS ORDERED: BISACODYL 10MG SUPP PR NR (17:15)
[2020-11-22] MEDS ORDERED: NA PHOS,M-B/NA PHOS,DI-BA ENEMA 118ML PR NR (18:00)
[2020-11-22 20:00] VITALS: BP 97/45
[2020-11-23] VITALS: BP 106/54
[2020-11-23 04:00] VITALS: BP 107/60
[2020-11-23] MEDS: BLOOD SUGAR DIAGNOSTIC STRIP TEST SCH ×4 (06:21→21:00)
[2020-11-23] MEDS: INSULIN LISPRO 100 UNITS/ML SUBCUT SCH ×4 (06:29→22:08)
[2020-11-23 06:33] LABS: CHLORIDE 101 mEq/L (98-107)
[2020-11-23 06:40] LABS: PHOSPHORUS 2.4 mg/dL (2.5-4.9)
[2020-11-23 06:54] LABS: BASOPHILS % 0.2 % (0.0-2.0); EOSINOPHILS % 1.5 % (0.0-5.0); HEMATOCRIT. 24.6 % (36.0-48.0); HEMOGLOBIN. 8.3 g/dL (12.0-16.0); LYMPHOCYTES % 10.1 % (20.0-50.0); MEAN CORPUSCULAR HEMOGLOBIN 28.8 pg (28.0-32.0); MEAN CORPUSCULAR VOLUME 85.1 fL (81.0-99.0); MEAN PLATELET VOLUME 9.2 fl (7.4-10.4); MONOCYTES % 5.5 % (2.0-8.0); NEUTROPHILS % 82.7 % (40.0-76.0); PLATELET 267 x1000/uL (130-400); RED BLOOD CELL COUNT 2.89 mill/uL (4.2-5.4); RED CELL DISTRIBUTION WIDTH 14.1 % (11.6-14.6)
[2020-11-23 08:00] VITALS: BP 96/39
[2020-11-23] MEDS: APIXABAN 5 MG TABLET PO SCH ×2 (08:44→17:16)
[2020-11-23] MEDS: FAMOTIDINE 20MG TABLET PO SCH ×2 (08:44→22:00)
[2020-11-23] MEDS: MULTIVITAMINS,THER W-MINERALS TABLET PO SCH (08:44)
[2020-11-23] MEDS: LACTULOSE 20G/30ML UDC PO SCH (08:44)
[2020-11-23] MEDS: FLUTICASONE PROPIONATE 50MCG/SPRAY BOTTLE BOTHNSTRLS SCH ×2 (08:44→22:01)
[2020-11-23] MEDS: OXYBUTYNIN CHLORIDE 5MG TABLET PO SCH ×2 (08:44→21:59)
[2020-11-23] MEDS: PREDNISONE 10MG TABLET PO SCH (08:44)
[2020-11-23] MEDS: LOSARTAN POTASSIUM 50 MG TABLET NG SCH (08:48)
[2020-11-23] MEDS: AMLODIPINE 5MG TABLET NG SCH ×2 (08:48→21:59)
[2020-11-23] MEDS: DOCUSATE SODIUM SUGAR FREE 100MG/10ML UDC NG SCH (08:48)
[2020-11-23] MEDS: INSULIN GLARGINE UD 100 UNITS/ML SYR SUBCUT SCH (10:18)
[2020-11-23] MEDS ORDERED: POTASSIUM CHLORIDE INJ 40 MEQ in DEXT 5% WATER 250 ML IV SCH (11:00)
[2020-11-23] MEDS ORDERED: POTASSIUM PHOS,M-BASIC-D-BASIC 15 MMOL in DEXT 5% WATER 245 ML IV SCH (11:00)
[2020-11-23 12:00] VITALS: BP 110/62
[2020-11-23] MEDS: TRAMADOL 50MG TABLET PO PRN (14:06)
[2020-11-23 14:46] VITALS: BP 110/62
[2020-11-23] MEDS ORDERED: POTASSIUM CHLORIDE 20MEQ/PACKET PO NR (19:00)
[2020-11-23 20:00] VITALS: BP 118/59
[2020-11-24] VITALS: BP 108/57
[2020-11-24] MEDS: ACETAMINOPHEN 500MG TABLET PO PRN ×2 (00:40→18:10)
[2020-11-24 04:00] VITALS: BP 104/50
[2020-11-24 06:06] LABS: BASOPHILS % 0.3 % (0.0-2.0); EOSINOPHILS % 1.4 % (0.0-5.0); HEMATOCRIT. 26.6 % (36.0-48.0); HEMOGLOBIN. 8.8 g/dL (12.0-16.0); LYMPHOCYTES % 13.7 % (20.0-50.0); MEAN CORPUSCULAR HEMOGLOBIN 28.1 pg (28.0-32.0); MEAN CORPUSCULAR VOLUME 84.5 fL (81.0-99.0); MEAN PLATELET VOLUME 9.1 fl (7.4-10.4); MONOCYTES % 4.6 % (2.0-8.0); PLATELET 337 x1000/uL (130-400); RED BLOOD CELL COUNT 3.14 mill/uL (4.2-5.4); RED CELL DISTRIBUTION WIDTH 14.8 % (11.6-14.6)
[2020-11-24 06:15] LABS: CHLORIDE 103 mEq/L (98-107)
[2020-11-24 06:21] LABS: PHOSPHORUS 2.5 mg/dL (2.5-4.9)
[2020-11-24] MEDS: INSULIN LISPRO 100 UNITS/ML SUBCUT SCH ×4 (07:22→22:00)
[2020-11-24 07:57] VITALS: BP 105/55
[2020-11-24] MEDS: DOCUSATE SODIUM SUGAR FREE 100MG/10ML UDC NG SCH (08:23)
[2020-11-24] MEDS: LACTULOSE 20G/30ML UDC PO SCH (08:23)
[2020-11-24] MEDS: FLUCONAZOLE 100MG TABLET PO SCH (08:24)
[2020-11-24] MEDS: APIXABAN 5 MG TABLET PO SCH ×2 (08:24→17:04)
[2020-11-24] MEDS: PREDNISONE 10MG TABLET PO SCH (08:24)
[2020-11-24] MEDS: MULTIVITAMINS,THER W-MINERALS TABLET PO SCH (08:24)
[2020-11-24] MEDS: OXYBUTYNIN CHLORIDE 5MG TABLET PO SCH ×2 (08:24→21:51)
[2020-11-24] MEDS: FAMOTIDINE 20MG TABLET PO SCH ×2 (08:24→21:51)
[2020-11-24] MEDS: AMLODIPINE 5MG TABLET NG SCH ×2 (08:25→21:00)
[2020-11-24] MEDS: LOSARTAN POTASSIUM 50 MG TABLET NG SCH (08:25)
[2020-11-24] MEDS: FLUTICASONE PROPIONATE 50MCG/SPRAY BOTTLE BOTHNSTRLS SCH (08:29)
[2020-11-24] MEDS: BLOOD SUGAR DIAGNOSTIC STRIP TEST SCH ×4 (08:38→21:50)
[2020-11-24] MEDS: INSULIN GLARGINE UD 100 UNITS/ML SYR SUBCUT SCH (09:01)
[2020-11-24 11:46] VITALS: BP 103/56
[2020-11-24 16:00] VITALS: BP 112/62
[2020-11-24 20:00] VITALS: BP 109/59
[2020-11-25] VITALS: BP 106/66
[2020-11-25] MEDS: ACETAMINOPHEN 500MG TABLET PO PRN (03:56)
[2020-11-25 04:00] VITALS: BP 115/55
[2020-11-25] MEDS: INSULIN LISPRO 100 UNITS/ML SUBCUT SCH ×4 (06:33→21:57)
[2020-11-25 06:43] LABS: BASOPHILS % 0.4 % (0.0-2.0); EOSINOPHILS % 1.3 % (0.0-5.0); HEMATOCRIT. 26.2 % (36.0-48.0); HEMOGLOBIN. 8.7 g/dL (12.0-16.0); LYMPHOCYTES % 10.6 % (20.0-50.0); MEAN CORPUSCULAR HEMOGLOBIN 27.9 pg (28.0-32.0); MEAN CORPUSCULAR VOLUME 84.5 fL (81.0-99.0); MONOCYTES % 4.2 % (2.0-8.0); NEUTROPHILS % 83.5 % (40.0-76.0); PLATELET 342 x1000/uL (130-400); RED BLOOD CELL COUNT 3.11 mill/uL (4.2-5.4); RED CELL DISTRIBUTION WIDTH 14.4 % (11.6-14.6)
[2020-11-25] MEDS: BLOOD SUGAR DIAGNOSTIC STRIP TEST SCH ×4 (07:24→21:48)
[2020-11-25 08:00] VITALS: BP 116/67
[2020-11-25] MEDS: DOCUSATE SODIUM SUGAR FREE 100MG/10ML UDC NG SCH (08:33)
[2020-11-25] MEDS: FLUCONAZOLE 100MG TABLET PO SCH (08:34)
[2020-11-25] MEDS: LACTULOSE 20G/30ML UDC PO SCH (08:34)
[2020-11-25] MEDS: AMLODIPINE 5MG TABLET NG SCH ×2 (08:34→21:00)
[2020-11-25] MEDS: APIXABAN 5 MG TABLET PO SCH ×2 (08:34→17:12)
[2020-11-25] MEDS: LOSARTAN POTASSIUM 50 MG TABLET NG SCH (08:34)
[2020-11-25] MEDS: PREDNISONE 10MG TABLET PO SCH (08:34)
[2020-11-25] MEDS: MULTIVITAMINS,THER W-MINERALS TABLET PO SCH (08:34)
[2020-11-25] MEDS: FAMOTIDINE 20MG TABLET PO SCH ×2 (08:34→21:43)
[2020-11-25] MEDS: OXYBUTYNIN CHLORIDE 5MG TABLET PO SCH ×2 (08:34→21:43)
[2020-11-25] MEDS: NA PHOS,M-B/NA PHOS,DI-BA ENEMA 118ML PR PRN (08:42)
[2020-11-25 08:59] LABS: CHLORIDE 102 mEq/L (98-107)
[2020-11-25 09:07] LABS: PHOSPHORUS 3.3 mg/dL (2.5-4.9)
[2020-11-25] MEDS: INSULIN GLARGINE UD 100 UNITS/ML SYR SUBCUT SCH (10:01)
[2020-11-25 12:01] VITALS: BP 107/58
[2020-11-25 20:00] VITALS: BP_SYST 111; BP_SYST 92; BP_DIAS 50; BP_DIAS 55
[2020-11-26] VITALS (9 sets, daily range): BP systolic 91–103; BP diastolic 47–73
[2020-11-26 06:35] LABS: BASOPHILS % 0.5 % (0.0-2.0); EOSINOPHILS % 1.5 % (0.0-5.0); HEMATOCRIT. 25.8 % (36.0-48.0); HEMOGLOBIN. 8.6 g/dL (12.0-16.0); LYMPHOCYTES % 13.2 % (20.0-50.0); MEAN CORPUSCULAR VOLUME 84.1 fL (81.0-99.0); MONOCYTES % 4.8 % (2.0-8.0); PLATELET 373 x1000/uL (130-400); RED BLOOD CELL COUNT 3.07 mill/uL (4.2-5.4); RED CELL DISTRIBUTION WIDTH 14.9 % (11.6-14.6)
[2020-11-26 06:38] LABS: CHLORIDE 100 mEq/L (98-107)
[2020-11-26 06:44] LABS: PHOSPHORUS 3.6 mg/dL (2.5-4.9)
[2020-11-26] MEDS: AMLODIPINE 5MG TABLET NG SCH (09:00)
[2020-11-26] MEDS: INSULIN LISPRO 100 UNITS/ML SUBCUT SCH ×3 (09:00→21:20)
[2020-11-26] MEDS: PREDNISONE 10MG TABLET PO SCH (09:08)
[2020-11-26] MEDS: OXYBUTYNIN CHLORIDE 5MG TABLET PO SCH ×2 (09:08→21:18)
[2020-11-26] MEDS: FLUCONAZOLE 100MG TABLET PO SCH (09:08)
[2020-11-26] MEDS: FAMOTIDINE 20MG TABLET PO SCH ×2 (09:08→21:18)
[2020-11-26] MEDS: MULTIVITAMINS,THER W-MINERALS TABLET PO SCH (09:08)
[2020-11-26] MEDS: LOSARTAN POTASSIUM 50 MG TABLET NG SCH (09:09)
[2020-11-26] MEDS: LACTULOSE 20G/30ML UDC PO SCH (09:10)
[2020-11-26] MEDS: DOCUSATE SODIUM SUGAR FREE 100MG/10ML UDC NG SCH (09:11)
[2020-11-26] MEDS: BLOOD SUGAR DIAGNOSTIC STRIP TEST SCH ×3 (09:12→21:20)
[2020-11-26] MEDS: APIXABAN 5 MG TABLET PO SCH ×2 (09:33→18:05)
[2020-11-26] MEDS: INSULIN GLARGINE UD 100 UNITS/ML SYR SUBCUT SCH (11:07)
[2020-11-26] MEDS ORDERED: IPRATROPIUM/ALBUTEROL 0.5-3(2.5)MG/3ML NEB HHN PRN (11:30)
[2020-11-26] MEDS ORDERED: GUAIFENESIN/CODEINE 100-10MG/5ML UDC PO PRN (12:00)
[2020-11-26] MEDS ORDERED: SODIUM CHLORIDE 10% FOR INH 15ML VIAL NEB INH SCH (12:00)
[2020-11-26] MEDS ORDERED: SODIUM CHLORIDE 0.9% 500 ML IV ONE (12:00)
[2020-11-26] MEDS: IPRATROPIUM/ALBUTEROL 0.5-3(2.5)MG/3ML NEB HHN SCH ×2 (13:21→22:25)
[2020-11-26 13:51] LABS: BG BASE EXCESS 0.8 mmol/L (-2.0-2.0); BG CARBOXYHEMOGLOBIN 0.3 % (0.5-1.5); BG DEOXYHEMOGLOBIN 2.4 % (0.0-5.0); BG FRACTION INSPIRED OXYGEN 100; BG HCO3 ACT 23.3 mmol/L (22.0-26.0); BG METHEMOGLOBIN 0.3 % (0.0-1.5); BG OXYGEN SATURATION 97.6 % (92.0-98.5); BG PCO2 29.9 mmHg (35.0-45.0); BG PO2 95.2 mmHg (75.0-100.0); BG SAMPLE SITE LEFT RADIAL; BG TOTAL HEMOGLOBIN 9.6 g/dL (12.0-18.0); BG VENT MODE MASK - NRB
[2020-11-26] MEDS ORDERED: ACETAMINOPHEN 650MG/20.3ML UDC PO NR (14:00)
[2020-11-26] MEDS: METOPROLOL TARTRATE 5MG/5ML VIAL IV SCH ×2 (15:24→21:21)
[2020-11-26] MEDS: VANCOMYCIN 750 MG PREMIX 150 ML IV SCH (18:05)
[2020-11-26] MEDS: PIPERACILLIN/TAZOBACTAM 3.375 G in DEXT 5% WATER 100 ML IV SCH (18:06)
[2020-11-26 19:57] LABS: CLARITY URINE CLOUDY (CLEAR); COLOR URINE DARK YELLOW (YELLOW); KETONES URINE NEGATIVE (NEGATIVE); LEUKOCYTE ESTERASE URINE 2+ (NEGATIVE); NITRITE URINE NEGATIVE (NEGATIVE); OCCULT BLOOD URINE 2+ (NEGATIVE); PROTEIN URINE 1+ (NEGATIVE); SPECIFIC GRAVITY URINE 1.016 (1.005-1.030); UROBILINOGEN URINE 0.2 E.U./dL (0.2-1.0)
[2020-11-27] MEDS: PIPERACILLIN/TAZOBACTAM 3.375 G in DEXT 5% WATER 100 ML IV SCH ×4 (00:07→18:26)
[2020-11-27] MEDS: BENZONATATE 100MG CAPSULE PO PRN ×2 (00:41→21:57)
[2020-11-27] MEDS: IPRATROPIUM/ALBUTEROL 0.5-3(2.5)MG/3ML NEB HHN SCH ×4 (03:47→21:56)
[2020-11-27 05:47] VITALS: BP 98/58
[2020-11-27] MEDS: METOPROLOL TARTRATE 5MG/5ML VIAL IV SCH (06:00)
[2020-11-27] MEDS: INSULIN LISPRO 100 UNITS/ML SUBCUT SCH ×4 (06:21→22:58)
[2020-11-27] MEDS: BLOOD SUGAR DIAGNOSTIC STRIP TEST SCH ×4 (06:21→21:24)
[2020-11-27 06:37] VITALS: BP 101/60
[2020-11-27] MEDS: VANCOMYCIN 750 MG PREMIX 150 ML IV SCH ×2 (06:54→21:23)
[2020-11-27 07:21] LABS: BASOPHILS % 0.5 % (0.0-2.0); EOSINOPHILS % 1.7 % (0.0-5.0); HEMATOCRIT. 23.4 % (36.0-48.0); HEMOGLOBIN. 7.6 g/dL (12.0-16.0); LYMPHOCYTES % 10.7 % (20.0-50.0); MEAN CORPUSCULAR HEMOGLOBIN 27.4 pg (28.0-32.0); MEAN CORPUSCULAR VOLUME 84.8 fL (81.0-99.0); MONOCYTES % 4.2 % (2.0-8.0); NEUTROPHILS % 82.9 % (40.0-76.0); PLATELET 359 x1000/uL (130-400); RED BLOOD CELL COUNT 2.76 mill/uL (4.2-5.4); RED CELL DISTRIBUTION WIDTH 15.1 % (11.6-14.6)
[2020-11-27 07:54] LABS: CHLORIDE 100 mEq/L (98-107)
[2020-11-27 08:00] VITALS: BP_SYST 113; BP_DIAS 56; BP_DIAS 61
[2020-11-27 08:14] LABS: PHOSPHORUS 3.7 mg/dL (2.5-4.9)
[2020-11-27] MEDS: LACTULOSE 20G/30ML UDC PO SCH ×2 (08:37→09:00)
[2020-11-27] MEDS: FAMOTIDINE 20MG TABLET PO SCH ×2 (08:38→21:23)
[2020-11-27] MEDS: PREDNISONE 10MG TABLET PO SCH (08:38)
[2020-11-27] MEDS: DOCUSATE SODIUM SUGAR FREE 100MG/10ML UDC NG SCH ×2 (08:38→09:00)
[2020-11-27] MEDS: MULTIVITAMINS,THER W-MINERALS TABLET PO SCH (08:39)
[2020-11-27] MEDS: APIXABAN 5 MG TABLET PO SCH ×2 (08:39→16:50)
[2020-11-27] MEDS: OXYBUTYNIN CHLORIDE 5MG TABLET PO SCH ×2 (08:39→21:23)
[2020-11-27] MEDS: FLUCONAZOLE 100MG TABLET PO SCH (08:39)
[2020-11-27 12:00] VITALS: BP 113/56
[2020-11-27] MEDS: INSULIN GLARGINE UD 100 UNITS/ML SYR SUBCUT SCH (12:30)
[2020-11-27] MEDS: METOPROLOL TARTRATE 25MG TABLET PO SCH ×2 (12:31→21:00)
[2020-11-27 16:30] VITALS: BP 110/62
[2020-11-27] MEDS: ACETAMINOPHEN 650MG/20.3ML UDC PO PRN (16:50)
[2020-11-27 20:00] VITALS: BP 103/48
[2020-11-28] VITALS: BP 126/65
[2020-11-28] MEDS: PIPERACILLIN/TAZOBACTAM 3.375 G in DEXT 5% WATER 100 ML IV SCH ×4 (00:55→17:10)
[2020-11-28 04:00] VITALS: BP 124/58
[2020-11-28 04:36] LABS: CHLORIDE 100 mEq/L (98-107)
[2020-11-28 05:24] LABS: BASOPHILS % 0.3 % (0.0-2.0); EOSINOPHILS % 1.6 % (0.0-5.0); HEMATOCRIT. 23.5 % (36.0-48.0); HEMOGLOBIN. 7.7 g/dL (12.0-16.0); LYMPHOCYTES % 8.7 % (20.0-50.0); MEAN CORPUSCULAR HEMOGLOBIN 27.5 pg (28.0-32.0); MEAN CORPUSCULAR VOLUME 84.1 fL (81.0-99.0); MEAN PLATELET VOLUME 9.1 fl (7.4-10.4); MONOCYTES % 3.6 % (2.0-8.0); NEUTROPHILS % 85.8 % (40.0-76.0); PLATELET 389 x1000/uL (130-400); RED BLOOD CELL COUNT 2.79 mill/uL (4.2-5.4); RED CELL DISTRIBUTION WIDTH 14.9 % (11.6-14.6)
[2020-11-28] MEDS: IPRATROPIUM/ALBUTEROL 0.5-3(2.5)MG/3ML NEB HHN SCH ×4 (05:36→20:36)
[2020-11-28] MEDS: BLOOD SUGAR DIAGNOSTIC STRIP TEST SCH ×4 (06:32→20:46)
[2020-11-28] MEDS: INSULIN LISPRO 100 UNITS/ML SUBCUT SCH ×4 (06:40→21:16)
[2020-11-28 08:00] VITALS: BP 119/65
[2020-11-28] MEDS: LACTULOSE 20G/30ML UDC PO SCH (09:00)
[2020-11-28] MEDS: DOCUSATE SODIUM SUGAR FREE 100MG/10ML UDC NG SCH (09:00)
[2020-11-28] MEDS ORDERED: LIDOCAINE HCL/PF 1% 2ML VIAL ONE (09:30)
[2020-11-28] MEDS: VANCOMYCIN 750 MG PREMIX 150 ML IV SCH (09:36)
[2020-11-28] MEDS: FUROSEMIDE 40MG/4ML VIAL IVP SCH (09:36)
[2020-11-28] MEDS: MULTIVITAMINS,THER W-MINERALS TABLET PO SCH (09:37)
[2020-11-28] MEDS: BENZONATATE 100MG CAPSULE PO PRN (09:38)
[2020-11-28] MEDS: OXYBUTYNIN CHLORIDE 5MG TABLET PO SCH ×2 (09:38→21:14)
[2020-11-28] MEDS: FLUCONAZOLE 100MG TABLET PO SCH (09:38)
[2020-11-28] MEDS: FAMOTIDINE 20MG TABLET PO SCH ×2 (09:39→21:15)
[2020-11-28] MEDS: PREDNISONE 10MG TABLET PO SCH (09:39)
[2020-11-28] MEDS: METOPROLOL TARTRATE 25MG TABLET PO SCH ×3 (09:39→21:15)
[2020-11-28] MEDS: APIXABAN 5 MG TABLET PO SCH ×2 (09:39→17:10)
[2020-11-28] MEDS: INSULIN GLARGINE UD 100 UNITS/ML SYR SUBCUT SCH (10:12)
[2020-11-28] MEDS: ACETAMINOPHEN 650MG/20.3ML UDC PO PRN (10:15)
[2020-11-28] MEDS: ACETAMINOPHEN 500MG TABLET PO PRN (10:51)
[2020-11-28 12:00] VITALS: BP 125/63
[2020-11-28 12:44] LABS: BG BASE EXCESS 1.6 mmol/L (-2.0-2.0); BG CARBOXYHEMOGLOBIN 0.3 % (0.5-1.5); BG DEOXYHEMOGLOBIN 1.4 % (0.0-5.0); BG FRACTION INSPIRED OXYGEN 100; BG HCO3 ACT 24.1 mmol/L (22.0-26.0); BG METHEMOGLOBIN 0.3 % (0.0-1.5); BG OXYGEN SATURATION 98.6 % (92.0-98.5); BG PCO2 29.6 mmHg (35.0-45.0); BG PH 7.529 (7.350-7.450); BG PO2 130.1 mmHg (75.0-100.0); BG SAMPLE SITE LEFT RADIAL; BG TOTAL HEMOGLOBIN 8.3 g/dL (12.0-18.0); BG VENT MODE MASK - NRB
[2020-11-28 16:00] VITALS: BP 106/58
[2020-11-28] MEDS: GUAIFENESIN/CODEINE 200-20MG/10ML UDC PO PRN (17:10)
[2020-11-28] MEDS ORDERED: METHYLPREDNISOLONE SOD SUCC 40 MG/ML VIAL IV NR (17:15)
[2020-11-28 20:00] VITALS: BP 120/67
[2020-11-29] VITALS: BP 112/66
[2020-11-29] MEDS: PIPERACILLIN/TAZOBACTAM 3.375 G in DEXT 5% WATER 100 ML IV SCH ×5 (01:04→23:26)
[2020-11-29 04:00] VITALS: BP 114/62
[2020-11-29] MEDS: METOPROLOL TARTRATE 25MG TABLET PO SCH ×3 (05:33→21:12)
[2020-11-29] MEDS: BLOOD SUGAR DIAGNOSTIC STRIP TEST SCH ×4 (06:13→21:12)
[2020-11-29] MEDS: INSULIN LISPRO 100 UNITS/ML SUBCUT SCH ×4 (06:17→21:14)
[2020-11-29] MEDS: IPRATROPIUM/ALBUTEROL 0.5-3(2.5)MG/3ML NEB HHN SCH ×3 (07:44→22:20)
[2020-11-29 08:00] VITALS: BP 106/60
[2020-11-29 08:31] LABS: CHLORIDE 99 mEq/L (98-107)
[2020-11-29 08:32] LABS: HEMATOCRIT. 23.5 % (36.0-48.0); HEMOGLOBIN. 7.6 g/dL (12.0-16.0); MEAN CORPUSCULAR HEMOGLOBIN 27.2 pg (28.0-32.0); MEAN CORPUSCULAR VOLUME 83.8 fL (81.0-99.0); PLATELET 395 x1000/uL (130-400)
[2020-11-29 08:37] LABS: PHOSPHORUS 3.1 mg/dL (2.5-4.9)
[2020-11-29] MEDS: LACTULOSE 20G/30ML UDC PO SCH (09:00)
[2020-11-29] MEDS: DOCUSATE SODIUM SUGAR FREE 100MG/10ML UDC NG SCH (09:00)
[2020-11-29] MEDS: OXYBUTYNIN CHLORIDE 5MG TABLET PO SCH ×2 (09:03→21:13)
[2020-11-29] MEDS: FAMOTIDINE 20MG TABLET PO SCH ×2 (09:03→21:12)
[2020-11-29] MEDS: MULTIVITAMINS,THER W-MINERALS TABLET PO SCH (09:03)
[2020-11-29] MEDS: PREDNISONE 10MG TABLET PO SCH (09:03)
[2020-11-29] MEDS: FLUCONAZOLE 100MG TABLET PO SCH (09:03)
[2020-11-29] MEDS: APIXABAN 5 MG TABLET PO SCH ×2 (09:03→16:54)
[2020-11-29] MEDS: FUROSEMIDE 40MG/4ML VIAL IVP SCH (09:04)
[2020-11-29] MEDS: INSULIN GLARGINE UD 100 UNITS/ML SYR SUBCUT SCH (09:23)
[2020-11-29] MEDS: GUAIFENESIN/CODEINE 200-20MG/10ML UDC PO PRN ×3 (09:26→21:35)
[2020-11-29 12:00] VITALS: BP 115/68
[2020-11-29 13:22] LABS: PLATELET ESTIMATE NORMAL
[2020-11-29 16:00] VITALS: BP 107/58
[2020-11-29 20:00] VITALS: BP 98/57
[2020-11-30] VITALS (7 sets, daily range): BP systolic 105–128; BP diastolic 53–72
[2020-11-30] MEDS: IPRATROPIUM/ALBUTEROL 0.5-3(2.5)MG/3ML NEB HHN SCH ×4 (01:55→22:14)
[2020-11-30] MEDS: PIPERACILLIN/TAZOBACTAM 3.375 G in DEXT 5% WATER 100 ML IV SCH ×3 (05:35→17:19)
[2020-11-30] MEDS: METOPROLOL TARTRATE 25MG TABLET PO SCH ×3 (05:36→21:08)
[2020-11-30] MEDS: BLOOD SUGAR DIAGNOSTIC STRIP TEST SCH ×4 (06:21→21:09)
[2020-11-30] MEDS: INSULIN LISPRO 100 UNITS/ML SUBCUT SCH ×4 (06:40→21:21)
[2020-11-30 07:29] LABS: BASOPHILS % 0.3 % (0.0-2.0); EOSINOPHILS % 1.7 % (0.0-5.0); HEMATOCRIT. 23.5 % (36.0-48.0); HEMOGLOBIN. 7.6 g/dL (12.0-16.0); LYMPHOCYTES % 11.7 % (20.0-50.0); MEAN CORPUSCULAR HEMOGLOBIN 27.1 pg (28.0-32.0); MEAN PLATELET VOLUME 8.9 fl (7.4-10.4); MONOCYTES % 4.6 % (2.0-8.0); NEUTROPHILS % 81.7 % (40.0-76.0); PLATELET 386 x1000/uL (130-400)
[2020-11-30 07:43] LABS: CHLORIDE 96 mEq/L (98-107)
[2020-11-30] MEDS: FUROSEMIDE 40MG/4ML VIAL IVP SCH (09:33)
[2020-11-30] MEDS: LACTULOSE 20G/30ML UDC PO SCH (09:55)
[2020-11-30] MEDS: PREDNISONE 10MG TABLET PO SCH (09:56)
[2020-11-30] MEDS: FLUCONAZOLE 100MG TABLET PO SCH (09:57)
[2020-11-30] MEDS: FAMOTIDINE 20MG TABLET PO SCH ×2 (09:57→21:08)
[2020-11-30] MEDS: APIXABAN 5 MG TABLET PO SCH ×2 (09:57→17:18)
[2020-11-30] MEDS: OXYBUTYNIN CHLORIDE 5MG TABLET PO SCH ×2 (09:57→21:08)
[2020-11-30] MEDS: INSULIN GLARGINE UD 100 UNITS/ML SYR SUBCUT SCH (10:58)
[2020-11-30] MEDS: METHYLPREDNISOLONE SOD SUCC 40 MG/ML VIAL IV SCH ×2 (17:19→21:08)
[2020-12-01] VITALS: BP 107/63
[2020-12-01] MEDS: PIPERACILLIN/TAZOBACTAM 3.375 G in DEXT 5% WATER 100 ML IV SCH ×4 (00:29→17:47)
[2020-12-01] MEDS: GUAIFENESIN/CODEINE 200-20MG/10ML UDC PO PRN (02:40)
[2020-12-01] MEDS: IPRATROPIUM/ALBUTEROL 0.5-3(2.5)MG/3ML NEB HHN SCH ×4 (03:41→22:42)
[2020-12-01 04:00] VITALS: BP 90/74
[2020-12-01] MEDS: METOPROLOL TARTRATE 25MG TABLET PO SCH ×3 (05:56→23:20)
[2020-12-01] MEDS: BLOOD SUGAR DIAGNOSTIC STRIP TEST SCH ×4 (05:57→21:00)
[2020-12-01] MEDS: INSULIN LISPRO 100 UNITS/ML SUBCUT SCH ×4 (06:21→23:24)
[2020-12-01] MEDS: INSULIN LISPRO 100 UNITS/ML SUBCUT PRN (06:21)
[2020-12-01 07:05] LABS: CHLORIDE 90 mEq/L (98-107)
[2020-12-01 07:21] LABS: HEMATOCRIT. 24.9 % (36.0-48.0); HEMOGLOBIN. 7.9 g/dL (12.0-16.0); MEAN CORPUSCULAR HEMOGLOBIN 26.7 pg (28.0-32.0); MEAN CORPUSCULAR VOLUME 84.1 fL (81.0-99.0); MEAN PLATELET VOLUME 9.1 fl (7.4-10.4); PHOSPHORUS 4.5 mg/dL (2.5-4.9); PLATELET 447 x1000/uL (130-400); RED BLOOD CELL COUNT 2.96 mill/uL (4.2-5.4); RED CELL DISTRIBUTION WIDTH 15.2 % (11.6-14.6)
[2020-12-01 08:00] VITALS: BP 120/60
[2020-12-01] MEDS: FUROSEMIDE 40MG/4ML VIAL IVP SCH (09:23)
[2020-12-01] MEDS: LACTULOSE 20G/30ML UDC PO SCH (09:23)
[2020-12-01] MEDS: METHYLPREDNISOLONE SOD SUCC 40 MG/ML VIAL IV SCH ×2 (09:23→23:24)
[2020-12-01] MEDS: FAMOTIDINE 20MG TABLET PO SCH ×2 (09:23→23:20)
[2020-12-01] MEDS: MULTIVITAMINS,THER W-MINERALS TABLET PO SCH (09:23)
[2020-12-01] MEDS: APIXABAN 5 MG TABLET PO SCH ×2 (09:24→17:47)
[2020-12-01] MEDS: FLUCONAZOLE 100MG TABLET PO SCH (09:24)
[2020-12-01] MEDS: OXYBUTYNIN CHLORIDE 5MG TABLET PO SCH ×2 (09:24→23:21)
[2020-12-01] MEDS ORDERED: INSULIN GLARGINE UD 100 UNITS/ML SYR SUBCUT SCH (10:00)
[2020-12-01 12:00] VITALS: BP 127/62
[2020-12-01] MEDS: MAGNESIUM GLUCONATE 500MG TABLET PO SCH (12:18)
[2020-12-01 13:46] LABS: PLATELET ESTIMATE INCREASED
[2020-12-01] MEDS ORDERED: MAGNESIUM 2 G PREMIX 50 ML IV NR (14:00)
[2020-12-01 16:00] VITALS: BP 122/70
[2020-12-01] MEDS ORDERED: BENZONATATE 100MG CAPSULE PO PRN (17:30)
[2020-12-01 20:00] VITALS: BP 114/52
[2020-12-01] MEDS: INSULIN GLARGINE UD 100 UNITS/ML SYR SUBCUT SCH (23:24)
[2020-12-02] VITALS: BP 118/64
[2020-12-02] MEDS: IPRATROPIUM/ALBUTEROL 0.5-3(2.5)MG/3ML NEB HHN SCH ×4 (02:08→21:24)
[2020-12-02 04:00] VITALS: BP 123/70
[2020-12-02] MEDS: INSULIN LISPRO 100 UNITS/ML SUBCUT SCH ×4 (06:33→22:14)
[2020-12-02] MEDS: METOPROLOL TARTRATE 25MG TABLET PO SCH ×3 (06:33→22:12)
[2020-12-02 07:48] LABS: HEMATOCRIT. 24.6 % (36.0-48.0); MEAN CORPUSCULAR HEMOGLOBIN 26.9 pg (28.0-32.0); MEAN CORPUSCULAR VOLUME 83.5 fL (81.0-99.0); MEAN PLATELET VOLUME 9.1 fl (7.4-10.4); PLATELET 465 x1000/uL (130-400); RED BLOOD CELL COUNT 2.95 mill/uL (4.2-5.4); RED CELL DISTRIBUTION WIDTH 15.4 % (11.6-14.6)
[2020-12-02 08:00] VITALS: BP 112/62
[2020-12-02 08:01] LABS: CHLORIDE 96 mEq/L (98-107)
[2020-12-02 08:06] LABS: PHOSPHORUS 3.3 mg/dL (2.5-4.9)
[2020-12-02 08:37] LABS: BG BASE EXCESS 7.8 mmol/L (-2.0-2.0); BG CARBOXYHEMOGLOBIN 0.2 % (0.5-1.5); BG FRACTION INSPIRED OXYGEN 60; BG HCO3 ACT 31.6 mmol/L (22.0-26.0); BG METHEMOGLOBIN 0.3 % (0.0-1.5); BG OXYHEMOGLOBIN 96.5 % (94.0-97.0); BG PH 7.505 (7.350-7.450); BG PO2 84.8 mmHg (75.0-100.0); BG SAMPLE SITE LEFT RADIAL; BG TOTAL HEMOGLOBIN 8.5 g/dL (12.0-18.0); BG VENT MODE HIGH FLOW
[2020-12-02] MEDS: LACTULOSE 20G/30ML UDC PO SCH (09:00)
[2020-12-02] MEDS: METHYLPREDNISOLONE SOD SUCC 40 MG/ML VIAL IV SCH ×2 (09:59→22:12)
[2020-12-02] MEDS: FAMOTIDINE 20MG TABLET PO SCH ×2 (09:59→22:13)
[2020-12-02] MEDS: FLUCONAZOLE 100MG TABLET PO SCH (09:59)
[2020-12-02] MEDS: MAGNESIUM GLUCONATE 500MG TABLET PO SCH (09:59)
[2020-12-02] MEDS: MULTIVITAMINS,THER W-MINERALS TABLET PO SCH (09:59)
[2020-12-02] MEDS: OXYBUTYNIN CHLORIDE 5MG TABLET PO SCH ×2 (10:00→22:13)
[2020-12-02] MEDS: APIXABAN 5 MG TABLET PO SCH ×2 (10:00→17:32)
[2020-12-02] MEDS: FUROSEMIDE 40MG/4ML VIAL IVP SCH (10:00)
[2020-12-02] MEDS: BLOOD SUGAR DIAGNOSTIC STRIP TEST SCH ×4 (10:00→21:00)
[2020-12-02] MEDS: INSULIN GLARGINE UD 100 UNITS/ML SYR SUBCUT SCH ×2 (10:02→22:22)
[2020-12-02] MEDS ORDERED: BISACODYL 10MG SUPP PR PRN (15:00)
[2020-12-02 16:00] VITALS: BP 115/66
[2020-12-02] MEDS: PIPERACILLIN/TAZOBACTAM 3.375 G in DEXT 5% WATER 100 ML IV SCH (17:52)
[2020-12-02 18:19] LABS: PLATELET ESTIMATE INCREASED
[2020-12-02 20:00] VITALS: BP 123/64
[2020-12-03] VITALS: BP 121/65
[2020-12-03] MEDS: IPRATROPIUM/ALBUTEROL 0.5-3(2.5)MG/3ML NEB HHN SCH ×4 (02:19→21:35)
[2020-12-03 04:00] VITALS: BP 102/69
[2020-12-03] MEDS: METOPROLOL TARTRATE 25MG TABLET PO SCH ×3 (06:52→21:50)
[2020-12-03] MEDS: PIPERACILLIN/TAZOBACTAM 3.375 G in DEXT 5% WATER 100 ML IV SCH ×4 (06:52→18:07)
[2020-12-03] MEDS: INSULIN LISPRO 100 UNITS/ML SUBCUT SCH ×4 (06:52→20:51)
[2020-12-03] MEDS: BLOOD SUGAR DIAGNOSTIC STRIP TEST SCH ×4 (06:58→20:51)
[2020-12-03 07:44] LABS: BASOPHILS % 0.3 % (0.0-2.0); HEMATOCRIT. 26.8 % (36.0-48.0); HEMOGLOBIN. 8.5 g/dL (12.0-16.0); LYMPHOCYTES % 7.8 % (20.0-50.0); MEAN CORPUSCULAR HEMOGLOBIN 26.5 pg (28.0-32.0); MEAN CORPUSCULAR VOLUME 83.8 fL (81.0-99.0); MEAN PLATELET VOLUME 8.9 fl (7.4-10.4); MONOCYTES % 2.8 % (2.0-8.0); NEUTROPHILS % 89.1 % (40.0-76.0); PLATELET 492 x1000/uL (130-400); RED CELL DISTRIBUTION WIDTH 15.5 % (11.6-14.6)
[2020-12-03 07:54] LABS: CHLORIDE 98 mEq/L (98-107)
[2020-12-03 07:58] LABS: PHOSPHORUS 3.5 mg/dL (2.5-4.9)
[2020-12-03 08:00] VITALS: BP 116/48
[2020-12-03] MEDS: FUROSEMIDE 40MG/4ML VIAL IVP SCH (09:58)
[2020-12-03] MEDS: METHYLPREDNISOLONE SOD SUCC 40 MG/ML VIAL IV SCH ×2 (09:58→20:51)
[2020-12-03] MEDS: MAGNESIUM GLUCONATE 500MG TABLET PO SCH (09:58)
[2020-12-03] MEDS: FLUCONAZOLE 100MG TABLET PO SCH (09:58)
[2020-12-03] MEDS: MULTIVITAMINS,THER W-MINERALS TABLET PO SCH (09:58)
[2020-12-03] MEDS: APIXABAN 5 MG TABLET PO SCH ×2 (09:58→18:07)
[2020-12-03] MEDS: FAMOTIDINE 20MG TABLET PO SCH ×2 (09:58→20:51)
[2020-12-03] MEDS: OXYBUTYNIN CHLORIDE 5MG TABLET PO SCH ×2 (09:58→20:51)
[2020-12-03] MEDS: LACTULOSE 20G/30ML UDC PO SCH (09:58)
[2020-12-03] MEDS: INSULIN GLARGINE UD 100 UNITS/ML SYR SUBCUT SCH ×2 (10:10→20:56)
[2020-12-03 12:00] VITALS: BP 118/66
[2020-12-03] MEDS: NA PHOS,M-B/NA PHOS,DI-BA ENEMA 118ML PR PRN (15:14)
[2020-12-03] MEDS ORDERED: NA PHOS,M-B/NA PHOS,DI-BA ENEMA 118ML PR NR (15:15)
[2020-12-03] MEDS: ACETAMINOPHEN 500MG TABLET PO PRN (15:17)
[2020-12-03 16:00] VITALS: BP 127/74
[2020-12-03 20:00] VITALS: BP 134/62
[2020-12-04] VITALS (7 sets, daily range): BP systolic 107–141; BP diastolic 61–76
[2020-12-04] MEDS: IPRATROPIUM/ALBUTEROL 0.5-3(2.5)MG/3ML NEB HHN SCH ×4 (01:20→20:32)
[2020-12-04] MEDS: PIPERACILLIN/TAZOBACTAM 3.375 G in DEXT 5% WATER 100 ML IV SCH ×4 (01:27→19:04)
[2020-12-04] MEDS: METOPROLOL TARTRATE 25MG TABLET PO SCH ×3 (05:31→21:16)
[2020-12-04] MEDS: BLOOD SUGAR DIAGNOSTIC STRIP TEST SCH ×4 (05:48→21:13)
[2020-12-04] MEDS: INSULIN LISPRO 100 UNITS/ML SUBCUT SCH ×4 (05:48→21:14)
[2020-12-04 07:34] LABS: BASOPHILS % 0.4 % (0.0-2.0); EOSINOPHILS % 0.4 % (0.0-5.0); HEMOGLOBIN. 8.7 g/dL (12.0-16.0); LYMPHOCYTES % 13.6 % (20.0-50.0); MEAN CORPUSCULAR HEMOGLOBIN 27.1 pg (28.0-32.0); MEAN CORPUSCULAR VOLUME 84.4 fL (81.0-99.0); MEAN PLATELET VOLUME 8.9 fl (7.4-10.4); MONOCYTES % 4.7 % (2.0-8.0); NEUTROPHILS % 80.9 % (40.0-76.0); PLATELET 476 x1000/uL (130-400); RED BLOOD CELL COUNT 3.19 mill/uL (4.2-5.4); RED CELL DISTRIBUTION WIDTH 15.7 % (11.6-14.6)
[2020-12-04 07:43] LABS: CHLORIDE 96 mEq/L (98-107)
[2020-12-04 07:48] LABS: PHOSPHORUS 3.6 mg/dL (2.5-4.9)
[2020-12-04] MEDS: FUROSEMIDE 40MG/4ML VIAL IVP SCH (09:00)
[2020-12-04] MEDS: APIXABAN 5 MG TABLET PO SCH ×2 (09:50→17:44)
[2020-12-04] MEDS: LACTULOSE 20G/30ML UDC PO SCH (09:50)
[2020-12-04] MEDS: FLUCONAZOLE 100MG TABLET PO SCH (09:50)
[2020-12-04] MEDS: OXYBUTYNIN CHLORIDE 5MG TABLET PO SCH ×2 (09:50→21:16)
[2020-12-04] MEDS: FAMOTIDINE 20MG TABLET PO SCH ×2 (09:51→21:15)
[2020-12-04] MEDS: ACETAMINOPHEN 500MG TABLET PO PRN (09:51)
[2020-12-04] MEDS: MAGNESIUM GLUCONATE 500MG TABLET PO SCH (09:51)
[2020-12-04] MEDS: MULTIVITAMINS,THER W-MINERALS TABLET PO SCH (09:51)
[2020-12-04] MEDS: METHYLPREDNISOLONE SOD SUCC 40 MG/ML VIAL IV SCH ×2 (09:52→21:15)
[2020-12-04] MEDS ORDERED: POTASSIUM CHLORIDE INJ 40 MEQ in DEXT 5% WATER 250 ML IV SCH (10:00)
[2020-12-04] MEDS: INSULIN GLARGINE UD 100 UNITS/ML SYR SUBCUT SCH ×2 (10:47→21:15)
[2020-12-05] VITALS: BP 130/86
[2020-12-05] MEDS: PIPERACILLIN/TAZOBACTAM 3.375 G in DEXT 5% WATER 100 ML IV SCH ×4 (00:25→17:21)
[2020-12-05] MEDS: IPRATROPIUM/ALBUTEROL 0.5-3(2.5)MG/3ML NEB HHN SCH ×4 (01:21→21:20)
[2020-12-05 04:00] VITALS: BP 126/78
[2020-12-05] MEDS: METOPROLOL TARTRATE 25MG TABLET PO SCH ×3 (05:40→21:27)
[2020-12-05] MEDS: BLOOD SUGAR DIAGNOSTIC STRIP TEST SCH ×4 (05:41→21:39)
[2020-12-05] MEDS: INSULIN LISPRO 100 UNITS/ML SUBCUT SCH ×4 (05:42→21:53)
[2020-12-05 06:51] LABS: HEMATOCRIT. 28.9 % (36.0-48.0); HEMOGLOBIN. 9.2 g/dL (12.0-16.0); MEAN CORPUSCULAR HEMOGLOBIN 26.8 pg (28.0-32.0); MEAN CORPUSCULAR VOLUME 84.3 fL (81.0-99.0); MEAN PLATELET VOLUME 8.9 fl (7.4-10.4); PLATELET 490 x1000/uL (130-400); RED BLOOD CELL COUNT 3.43 mill/uL (4.2-5.4); RED CELL DISTRIBUTION WIDTH 15.9 % (11.6-14.6)
[2020-12-05 07:40] LABS: CHLORIDE 99 mEq/L (98-107)
[2020-12-05 07:45] LABS: PHOSPHORUS 3.4 mg/dL (2.5-4.9)
[2020-12-05 08:00] VITALS: BP 125/72
[2020-12-05] MEDS: LACTULOSE 20G/30ML UDC PO SCH (08:43)
[2020-12-05] MEDS: METHYLPREDNISOLONE SOD SUCC 40 MG/ML VIAL IV SCH ×2 (08:43→21:26)
[2020-12-05 08:44] LABS: BG BASE EXCESS 4.8 mmol/L (-2.0-2.0); BG CARBOXYHEMOGLOBIN 0.3 % (0.5-1.5); BG DEOXYHEMOGLOBIN 1.6 % (0.0-5.0); BG FRACTION INSPIRED OXYGEN 50; BG HCO3 ACT 27.7 mmol/L (22.0-26.0); BG METHEMOGLOBIN 0.3 % (0.0-1.5); BG OXYGEN SATURATION 98.4 % (92.0-98.5); BG OXYHEMOGLOBIN 97.8 % (94.0-97.0); BG PCO2 34.4 mmHg (35.0-45.0); BG PH 7.523 (7.350-7.450); BG PO2 112.7 mmHg (75.0-100.0); BG SAMPLE SITE LEFT RADIAL; BG VENT MODE VAPOTHERM
[2020-12-05] MEDS: FAMOTIDINE 20MG TABLET PO SCH ×2 (08:44→21:26)
[2020-12-05] MEDS: FUROSEMIDE 40MG/4ML VIAL IVP SCH (08:44)
[2020-12-05] MEDS: MULTIVITAMINS,THER W-MINERALS TABLET PO SCH (08:44)
[2020-12-05] MEDS: MAGNESIUM GLUCONATE 500MG TABLET PO SCH (08:44)
[2020-12-05] MEDS: APIXABAN 5 MG TABLET PO SCH ×2 (08:45→17:21)
[2020-12-05] MEDS: OXYBUTYNIN CHLORIDE 5MG TABLET PO SCH ×2 (08:45→21:26)
[2020-12-05] MEDS: FLUCONAZOLE 100MG TABLET PO SCH (08:47)
[2020-12-05] MEDS: INSULIN GLARGINE UD 100 UNITS/ML SYR SUBCUT SCH ×2 (11:07→21:54)
[2020-12-05 11:09] LABS: PLATELET ESTIMATE INCREASED
[2020-12-05 12:00] VITALS: BP 120/72
[2020-12-05 16:00] VITALS: BP 111/60
[2020-12-05 20:00] VITALS: BP 103/57
[2020-12-05] MEDS: ACETAMINOPHEN 500MG TABLET PO PRN (21:26)
[2020-12-06] VITALS: BP 120/66
[2020-12-06] MEDS: IPRATROPIUM/ALBUTEROL 0.5-3(2.5)MG/3ML NEB HHN SCH ×3 (02:30→16:52)
[2020-12-06] MEDS: PIPERACILLIN/TAZOBACTAM 3.375 G in DEXT 5% WATER 100 ML IV SCH ×4 (02:55→17:58)
[2020-12-06 04:00] VITALS: BP 121/66
[2020-12-06] MEDS: METOPROLOL TARTRATE 25MG TABLET PO SCH ×3 (06:22→21:25)
[2020-12-06] MEDS: BLOOD SUGAR DIAGNOSTIC STRIP TEST SCH ×4 (06:30→21:25)
[2020-12-06] MEDS: INSULIN LISPRO 100 UNITS/ML SUBCUT SCH ×4 (06:59→21:41)
[2020-12-06 08:00] VITALS: BP 105/65
[2020-12-06 09:29] LABS: CHLORIDE 98 mEq/L (98-107)
[2020-12-06 09:52] LABS: BASOPHILS % 0.2 % (0.0-2.0); HEMATOCRIT. 29.6 % (36.0-48.0); HEMOGLOBIN. 9.5 g/dL (12.0-16.0); LYMPHOCYTES % 8.2 % (20.0-50.0); MEAN CORPUSCULAR HEMOGLOBIN 27.1 pg (28.0-32.0); MEAN CORPUSCULAR VOLUME 84.4 fL (81.0-99.0); MONOCYTES % 2.5 % (2.0-8.0); NEUTROPHILS % 89.1 % (40.0-76.0); PLATELET 488 x1000/uL (130-400); RED CELL DISTRIBUTION WIDTH 15.8 % (11.6-14.6)
[2020-12-06] MEDS: LACTULOSE 20G/30ML UDC PO SCH (10:32)
[2020-12-06] MEDS: FAMOTIDINE 20MG TABLET PO SCH ×2 (10:32→21:22)
[2020-12-06] MEDS: INSULIN GLARGINE UD 100 UNITS/ML SYR SUBCUT SCH ×2 (10:32→21:42)
[2020-12-06] MEDS: MAGNESIUM GLUCONATE 500MG TABLET PO SCH (10:32)
[2020-12-06] MEDS: MULTIVITAMINS,THER W-MINERALS TABLET PO SCH (10:32)
[2020-12-06] MEDS: OXYBUTYNIN CHLORIDE 5MG TABLET PO SCH ×2 (10:33→21:25)
[2020-12-06] MEDS: APIXABAN 5 MG TABLET PO SCH ×2 (10:33→17:58)
[2020-12-06] MEDS: METHYLPREDNISOLONE SOD SUCC 40 MG/ML VIAL IV SCH ×2 (10:33→21:26)
[2020-12-06] MEDS: FUROSEMIDE 40MG/4ML VIAL IVP SCH (10:33)
[2020-12-06] MEDS: FLUCONAZOLE 100MG TABLET PO SCH (10:33)
[2020-12-06 12:00] VITALS: BP 110/70
[2020-12-06 16:00] VITALS: BP 120/69
[2020-12-06 20:00] VITALS: BP 119/70
[2020-12-07] VITALS: BP 101/80
[2020-12-07] MEDS: PIPERACILLIN/TAZOBACTAM 3.375 G in DEXT 5% WATER 100 ML IV SCH ×4 (00:22→17:26)
[2020-12-07 04:00] VITALS: BP 107/65
[2020-12-07] MEDS: METOPROLOL TARTRATE 25MG TABLET PO SCH ×3 (06:44→20:39)
[2020-12-07] MEDS: BLOOD SUGAR DIAGNOSTIC STRIP TEST SCH ×4 (06:54→20:39)
[2020-12-07 08:00] VITALS: BP 132/69
[2020-12-07] MEDS: INSULIN LISPRO 100 UNITS/ML SUBCUT SCH ×4 (08:02→20:38)
[2020-12-07 08:50] LABS: HEMATOCRIT. 31.5 % (36.0-48.0); HEMOGLOBIN. 10.1 g/dL (12.0-16.0); MEAN CORPUSCULAR HEMOGLOBIN 27.3 pg (28.0-32.0); MEAN CORPUSCULAR VOLUME 84.7 fL (81.0-99.0); PLATELET 491 x1000/uL (130-400); RED BLOOD CELL COUNT 3.72 mill/uL (4.2-5.4); RED CELL DISTRIBUTION WIDTH 16.6 % (11.6-14.6)
[2020-12-07 09:19] LABS: CHLORIDE 99 mEq/L (98-107)
[2020-12-07 09:25] LABS: PHOSPHORUS 3.3 mg/dL (2.5-4.9)
[2020-12-07] MEDS: IPRATROPIUM/ALBUTEROL 0.5-3(2.5)MG/3ML NEB HHN SCH ×2 (09:39→16:27)
[2020-12-07] MEDS: METHYLPREDNISOLONE SOD SUCC 40 MG/ML VIAL IV SCH (09:56)
[2020-12-07] MEDS: LACTULOSE 20G/30ML UDC PO SCH (09:56)
[2020-12-07] MEDS: APIXABAN 5 MG TABLET PO SCH ×2 (09:57→17:26)
[2020-12-07] MEDS: FAMOTIDINE 20MG TABLET PO SCH ×2 (09:57→20:38)
[2020-12-07] MEDS: MULTIVITAMINS,THER W-MINERALS TABLET PO SCH (09:57)
[2020-12-07] MEDS: FLUCONAZOLE 100MG TABLET PO SCH (09:57)
[2020-12-07] MEDS: OXYBUTYNIN CHLORIDE 5MG TABLET PO SCH ×2 (09:57→20:38)
[2020-12-07] MEDS: FUROSEMIDE 40MG/4ML VIAL IVP SCH (09:57)
[2020-12-07] MEDS: MAGNESIUM GLUCONATE 500MG TABLET PO SCH (09:57)
[2020-12-07] MEDS: INSULIN GLARGINE UD 100 UNITS/ML SYR SUBCUT SCH ×2 (09:58→21:47)
[2020-12-07 12:00] VITALS: BP 102/69
[2020-12-07 14:39] LABS: PLATELET ESTIMATE INCREASED
[2020-12-07 16:00] VITALS: BP 105/70
[2020-12-07 20:00] VITALS: BP 112/71
[2020-12-07] MEDS: GUAIFENESIN/CODEINE 200-20MG/10ML UDC PO PRN (20:38)
[2020-12-08] VITALS: BP 125/66
[2020-12-08] MEDS ORDERED: METF-874 PO (01:35)
[2020-12-08] MEDS ORDERED: GLIP5TAB12 PO (01:35)
[2020-12-08] MEDS ORDERED: AMLO5TAB88 PO (01:35)
[2020-12-08 04:00] VITALS: BP 109/67
[2020-12-08] MEDS: METOPROLOL TARTRATE 25MG TABLET PO SCH ×3 (05:44→21:56)
[2020-12-08] MEDS: BLOOD SUGAR DIAGNOSTIC STRIP TEST SCH ×4 (06:14→20:12)
[2020-12-08] MEDS: INSULIN LISPRO 100 UNITS/ML SUBCUT SCH ×4 (06:14→20:32)
[2020-12-08 06:22] LABS: BASOPHILS % 0.4 % (0.0-2.0); EOSINOPHILS % 0.4 % (0.0-5.0); HEMATOCRIT. 30.7 % (36.0-48.0); HEMOGLOBIN. 9.9 g/dL (12.0-16.0); LYMPHOCYTES % 16.1 % (20.0-50.0); MEAN CORPUSCULAR HEMOGLOBIN 27.4 pg (28.0-32.0); MEAN CORPUSCULAR VOLUME 84.8 fL (81.0-99.0); MEAN PLATELET VOLUME 9.3 fl (7.4-10.4); MONOCYTES % 6.4 % (2.0-8.0); NEUTROPHILS % 76.7 % (40.0-76.0); PLATELET 462 x1000/uL (130-400); RED BLOOD CELL COUNT 3.63 mill/uL (4.2-5.4); RED CELL DISTRIBUTION WIDTH 17.2 % (11.6-14.6)
[2020-12-08 06:26] LABS: CHLORIDE 99 mEq/L (98-107)
[2020-12-08 06:35] LABS: PHOSPHORUS 2.8 mg/dL (2.5-4.9)
[2020-12-08 08:00] VITALS: BP 106/92
[2020-12-08] MEDS: IPRATROPIUM/ALBUTEROL 0.5-3(2.5)MG/3ML NEB HHN SCH ×3 (08:57→21:20)
[2020-12-08] MEDS: FUROSEMIDE 40MG/4ML VIAL IVP SCH (09:08)
[2020-12-08] MEDS: MULTIVITAMINS,THER W-MINERALS TABLET PO SCH (09:08)
[2020-12-08] MEDS: PREDNISONE 20MG TABLET PO SCH (09:08)
[2020-12-08] MEDS: APIXABAN 5 MG TABLET PO SCH ×2 (09:08→18:01)
[2020-12-08] MEDS: FLUCONAZOLE 100MG TABLET PO SCH (09:08)
[2020-12-08] MEDS: LACTULOSE 20G/30ML UDC PO SCH (09:08)
[2020-12-08] MEDS: GUAIFENESIN/CODEINE 200-20MG/10ML UDC PO PRN (09:08)
[2020-12-08] MEDS: MAGNESIUM GLUCONATE 500MG TABLET PO SCH (09:08)
[2020-12-08] MEDS: OXYBUTYNIN CHLORIDE 5MG TABLET PO SCH ×2 (09:09→20:12)
[2020-12-08] MEDS: FAMOTIDINE 20MG TABLET PO SCH ×2 (09:10→20:12)
[2020-12-08] MEDS: INSULIN GLARGINE UD 100 UNITS/ML SYR SUBCUT SCH ×2 (09:51→21:59)
[2020-12-08 12:00] VITALS: BP 103/53
[2020-12-08 16:00] VITALS: BP 104/64
[2020-12-08 20:00] VITALS: BP 103/61
[2020-12-09] VITALS: BP 108/65
[2020-12-09] MEDS: IPRATROPIUM/ALBUTEROL 0.5-3(2.5)MG/3ML NEB HHN SCH ×4 (02:40→21:10)
[2020-12-09 04:00] VITALS: BP 105/60
[2020-12-09] MEDS: METOPROLOL TARTRATE 25MG TABLET PO SCH ×3 (05:52→21:01)
[2020-12-09] MEDS: INSULIN LISPRO 100 UNITS/ML SUBCUT SCH ×4 (05:56→20:48)
[2020-12-09] MEDS: BLOOD SUGAR DIAGNOSTIC STRIP TEST SCH ×4 (05:56→20:15)
[2020-12-09 06:23] LABS: BASOPHILS % 0.3 % (0.0-2.0); HEMATOCRIT. 32.3 % (36.0-48.0); HEMOGLOBIN. 10.4 g/dL (12.0-16.0); LYMPHOCYTES % 17.2 % (20.0-50.0); MEAN CORPUSCULAR HEMOGLOBIN 27.3 pg (28.0-32.0); MEAN CORPUSCULAR VOLUME 85.1 fL (81.0-99.0); MEAN PLATELET VOLUME 9.1 fl (7.4-10.4); MONOCYTES % 6.1 % (2.0-8.0); NEUTROPHILS % 75.4 % (40.0-76.0); PLATELET 439 x1000/uL (130-400); RED BLOOD CELL COUNT 3.79 mill/uL (4.2-5.4); RED CELL DISTRIBUTION WIDTH 16.7 % (11.6-14.6)
[2020-12-09 06:53] LABS: CHLORIDE 98 mEq/L (98-107)
[2020-12-09 07:05] LABS: PHOSPHORUS 3.3 mg/dL (2.5-4.9)
[2020-12-09 08:00] VITALS: BP 103/67
[2020-12-09] MEDS ORDERED: POTASSIUM CHLORIDE 20MEQ TABLET SR PO NR (09:00)
[2020-12-09] MEDS: LACTULOSE 20G/30ML UDC PO SCH (09:35)
[2020-12-09] MEDS: FUROSEMIDE 40MG/4ML VIAL IVP SCH (09:35)
[2020-12-09] MEDS: MAGNESIUM GLUCONATE 500MG TABLET PO SCH (09:35)
[2020-12-09] MEDS: MULTIVITAMINS,THER W-MINERALS TABLET PO SCH (09:35)
[2020-12-09] MEDS: APIXABAN 5 MG TABLET PO SCH ×2 (09:35→16:47)
[2020-12-09] MEDS: PREDNISONE 20MG TABLET PO SCH (09:35)
[2020-12-09] MEDS: FAMOTIDINE 20MG TABLET PO SCH ×2 (09:35→20:10)
[2020-12-09] MEDS: INSULIN GLARGINE UD 100 UNITS/ML SYR SUBCUT SCH ×2 (09:37→21:42)
[2020-12-09 12:00] VITALS: BP 105/67
[2020-12-09 16:00] VITALS: BP 92/58
[2020-12-09 20:00] VITALS: BP 99/63
[2020-12-09] MEDS: GUAIFENESIN/CODEINE 200-20MG/10ML UDC PO PRN (20:10)
[2020-12-10] VITALS: BP 101/57
[2020-12-10] MEDS: IPRATROPIUM/ALBUTEROL 0.5-3(2.5)MG/3ML NEB HHN SCH ×4 (01:35→21:40)
[2020-12-10 04:00] VITALS: BP 105/63
[2020-12-10] MEDS: METOPROLOL TARTRATE 25MG TABLET PO SCH ×2 (06:11→14:00)
[2020-12-10] MEDS: BLOOD SUGAR DIAGNOSTIC STRIP TEST SCH ×4 (06:12→21:00)
[2020-12-10] MEDS: INSULIN LISPRO 100 UNITS/ML SUBCUT SCH ×4 (06:20→21:00)
[2020-12-10 07:25] LABS: BASOPHILS % 0.2 % (0.0-2.0); EOSINOPHILS % 1.7 % (0.0-5.0); HEMATOCRIT. 32.7 % (36.0-48.0); HEMOGLOBIN. 10.4 g/dL (12.0-16.0); LYMPHOCYTES % 19.3 % (20.0-50.0); MEAN CORPUSCULAR VOLUME 85.2 fL (81.0-99.0); MEAN PLATELET VOLUME 9.3 fl (7.4-10.4); MONOCYTES % 5.5 % (2.0-8.0); NEUTROPHILS % 73.3 % (40.0-76.0); PLATELET 434 x1000/uL (130-400); RED BLOOD CELL COUNT 3.84 mill/uL (4.2-5.4)
[2020-12-10 07:39] LABS: CHLORIDE 100 mEq/L (98-107)
[2020-12-10 07:47] LABS: PHOSPHORUS 3.3 mg/dL (2.5-4.9)
[2020-12-10 08:00] VITALS: BP 101/62
[2020-12-10] MEDS: APIXABAN 5 MG TABLET PO SCH ×2 (09:31→17:20)
[2020-12-10] MEDS: MAGNESIUM GLUCONATE 500MG TABLET PO SCH (09:31)
[2020-12-10] MEDS: MULTIVITAMINS,THER W-MINERALS TABLET PO SCH (09:31)
[2020-12-10] MEDS: LACTULOSE 20G/30ML UDC PO SCH (09:31)
[2020-12-10] MEDS: FAMOTIDINE 20MG TABLET PO SCH (09:31)
[2020-12-10] MEDS: PREDNISONE 20MG TABLET PO SCH (09:31)
[2020-12-10] MEDS: FUROSEMIDE 40MG/4ML VIAL IVP SCH (09:31)
[2020-12-10] MEDS: INSULIN GLARGINE UD 100 UNITS/ML SYR SUBCUT SCH ×3 (10:06→21:00)
[2020-12-10 16:00] VITALS: BP 104/64
[2020-12-10] MEDS ORDERED: METFORMIN HCL 500MG TABLET PO SCH (17:15)
[2020-12-10 20:00] VITALS: BP 106/70
[2020-12-11] VITALS: BP 113/64
[2020-12-11] MEDS: IPRATROPIUM/ALBUTEROL 0.5-3(2.5)MG/3ML NEB HHN SCH (02:19)
[2020-12-11 04:00] VITALS: BP 115/65
[2020-12-11] MEDS: BLOOD SUGAR DIAGNOSTIC STRIP TEST SCH (06:20)
[2020-12-11] MEDS: INSULIN LISPRO 100 UNITS/ML SUBCUT SCH (06:20)
[2020-12-11 07:47] LABS: BASOPHILS % 0.2 % (0.0-2.0); EOSINOPHILS % 1.6 % (0.0-5.0); HEMATOCRIT. 31.4 % (36.0-48.0); HEMOGLOBIN. 10.1 g/dL (12.0-16.0); LYMPHOCYTES % 20.9 % (20.0-50.0); MEAN CORPUSCULAR HEMOGLOBIN 27.5 pg (28.0-32.0); MEAN CORPUSCULAR VOLUME 85.5 fL (81.0-99.0); MEAN PLATELET VOLUME 9.5 fl (7.4-10.4); MONOCYTES % 5.7 % (2.0-8.0); NEUTROPHILS % 71.6 % (40.0-76.0); PLATELET 416 x1000/uL (130-400); RED BLOOD CELL COUNT 3.68 mill/uL (4.2-5.4); RED CELL DISTRIBUTION WIDTH 17.5 % (11.6-14.6)
[2020-12-11 07:57] LABS: CHLORIDE 99 mEq/L (98-107)
[2020-12-11] MEDS ORDERED: PREDNISONE 20MG TABLET PO SCH (09:00)
== END 2020-12-11 08:00 | disposition home health service (06) | DRG 720 ==
LOC: ER 09:30 → EDBD 09:30 → MICUSO 11:28 → 5EST 11-07 02:40 → 4WST 11-18 11:26 → 5WST 11-26 12:15
PROVIDERS: ADMIT Internal Medicine; ATTEND Internal Medicine
PROC: 5A1955Z Respiratory Ventilation, Greater than 96 Consecutive Hours (ICD-10-PCS; principal; 2020-10-18)
PROC: 06HY33Z Insertion of Infusion Device into Lower Vein, Percutaneous Approach (ICD-10-PCS; 2020-10-18)
PROC: 5A09357 Assistance with Respiratory Ventilation, Less than 24 Consecutive Hours, Continuous Positive Airway Pressure (ICD-10-PCS; 2020-10-18)
PROC: 0BH17EZ Insertion of Endotracheal Airway into Trachea, Via Natural or Artificial Opening (ICD-10-PCS; 2020-10-18)
PROC: 5A09357 Assistance with Respiratory Ventilation, Less than 24 Consecutive Hours, Continuous Positive Airway Pressure (ICD-10-PCS; 2020-11-04)
PROC: 5A09357 Assistance with Respiratory Ventilation, Less than 24 Consecutive Hours, Continuous Positive Airway Pressure (ICD-10-PCS; 2020-11-06)
DX: A41.89 Other specified sepsis (principal); U07.1 COVID-19; E11.65 Type 2 diabetes mellitus with hyperglycemia; E87.2 Acidosis; J12.82 Pneumonia due to coronavirus disease 2019; D69.6 Thrombocytopenia, unspecified; E11.49 Type 2 diabetes mellitus with other diabetic neurological complication; E43 Unspecified severe protein-calorie malnutrition; E66.01 Morbid (severe) obesity due to excess calories; E87.0 Hyperosmolality and hypernatremia; I10 Essential (primary) hypertension; I26.99 Other pulmonary embolism without acute cor pulmonale; K76.0 Fatty (change of) liver, not elsewhere classified; K82.8 Other specified diseases of gallbladder; L85.3 Xerosis cutis; R33.9 Retention of urine, unspecified; Z66 Do not resuscitate; Z51.5 Encounter for palliative care; E83.42 Hypomagnesemia; E46 Unspecified protein-calorie malnutrition; E87.1 Hypo-osmolality and hyponatremia; J80 Acute respiratory distress syndrome; L89.626 Pressure-induced deep tissue damage of left heel; I49.3 Ventricular premature depolarization; E11.649 Type 2 diabetes mellitus with hypoglycemia without coma; E87.6 Hypokalemia; J15.0 Pneumonia due to Klebsiella pneumoniae; K59.00 Constipation, unspecified; K85.90 Acute pancreatitis without necrosis or infection, unspecified; N39.0 Urinary tract infection, site not specified; N17.0 Acute kidney failure with tubular necrosis; Z74.01 Bed confinement status; Z68.31 Body mass index [BMI] 31.0-31.9, adult; Z86.711 Personal history of pulmonary embolism; Z79.01 Long term (current) use of anticoagulants; Z79.4 Long term (current) use of insulin; Z79.899 Other long term (current) drug therapy; Z82.49 Family history of ischemic heart disease and other diseases of the circulatory system; Z83.3 Family history of diabetes mellitus
CPT/HCPCS: 31500; 36415; 36600; 71045; 71275; 74230; 76604; 76770; 80048; 80053; 80076; 80202; 81003; 82040; 82375; 82550; 82728; 82805; 82962; 83036; 83605; 83615; 83735; 83880; 84100; 84134; 84145; 84484; 85025; 85379; 86038; 86140; 87070; 87077; 87106; 87186; 87426; 87635; 92610; 92611; 92950; 93005; 93306; 94003; 94640; 94660; 97110; 97116; 97162; 97166; 97168; 97530; 97535; 99291; A6261; C1893; C9113; J0456; J0692; J0696; J1100; J1200; J1650; J1815; J1940; J2060; J2250; J2270; J2405; J2543; J2704; J2920; J3010; J3370; J3475; J3480; J3490; J7030; J7040; J7050; J7060; J7070; J7131; J7512; P9047; Q9967; A4315; A5200